=== PATIENT | female | born 1945 | race Caucasian/White ===

== ENCOUNTER 2021-04-19 21:36 | Inpatient (IN) | payer MEDICARE, BC, SELFPAY ==
--- NOTE | 2021-04-19 22:09 | XRR_ITS ---
PROCEDURE INFORMATION: Exam: XR Chest Exam date and time: 04/19/2021 10:09 PM Age: 75 years old Clinical indication: Cough and fever; Patient HX: Cough/fever. ; Additional info: Cough, fever TECHNIQUE: Imaging protocol: XR of the chest. Views: 1 view. COMPARISON: CR [facility] [place] Humerus RIGHT 04/06/2019 10:45 AM FINDINGS: Lungs: Hazy right basilar opacity which could be secondary to atelectasis or pneumonia. Pleural spaces: Unremarkable. No pleural effusion. No pneumothorax. Heart/Mediastinum: Unremarkable. No cardiomegaly. Bones/joints: Unremarkable. XR/XR chest 1V portable [id number] IMPRESSION: Hazy right basilar opacity which could be secondary to atelectasis or pneumonia.
[2021-04-19 22:16] VITALS: BP 108/70; PULSE 108; RESP 20; TEMP 37.6; O2SAT 94; BMI 35.5
[2021-04-19 23:24] LABS: SARS Covid-2 Antigen Negative (Negative)
--- NOTE | 2021-04-19 23:26 | ECG_ITS ---
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 Measurements Intervals [facility] Rate: 102 P: 26 ME: 143 QRS: 7 QRSD: 74 T: 58 QT: 320 QTc: 419 Interpretive Statements SINUS TACHYCARDIA LOW QRS VOLTAGE IN PRECORDIAL LEADS [QRS DEFLECTION < 1.0 mV IN CHEST LEADS] ABNORMAL RHYTHM ECG No previous ECG available for comparison Electronically Signed On 04-20-2021 7:32:05 CDT by Jocelyn Krause M.D. [id number]
[2021-04-19 23:41] LABS: Basophils # 0.1 10^3/uL (0.0-0.1); Basophils % 0.3 %; Hematocrit 36.7 % (37.0-47.0); Hemoglobin 11.8 g/dL (11.5-15.3); Lymphocytes # 2.4 10^3/uL (0.8-4.8); Lymphocytes % 12.5 %; Mean Corpuscular HGB Conc 32.2 g/dL (30.0-36.0); Mean Corpuscular Hemoglobin 28.8 pg (28.0-34.0); Mean Corpuscular Volume 89.5 fL (81-99); Mean Platelet Volume 12.5 fL (7.4-10.4); Monocytes # 1.5 10^3/uL (0.2-0.9); Monocytes % 7.9 %; Neutrophils # 15.26 10^3/uL (1.8-7.7); Neutrophils % 78.5 %; Nucleated Red Blood Cells % 0 %; Platelet Count 43 10^3/cmm (130-400); Red Cell Distribution Width 15.1 % (12.1-15.1); White Blood Count 19.4 10^3/uL (4.0-10.0)
[2021-04-19 23:52] LABS: Lactic Sepsis W/Reflex 1.7 mmol/L (0.5-2.2)
[2021-04-20] LABS: Alanine Aminotransferase 30 U/L (0-33); Albumin Level 3.8 g/dL (3.5-5.2); Alkaline Phosphatase 71 IU/L (35-105); Anion Gap 18.2 (5-19); Aspartate Amino Transferase 19 U/L (0-32); Blood Urea Nitrogen 33 mg/dL (8-23); Calcium 8.6 mg/dL (8.5-10.5); Carbon Dioxide 20 mmol/L (22-29); Chloride 99 mmol/L (98-107); Globulin 2.6 g/dL (1.3-4.6); Glucose 265 mg/dL (65-115); Osmolality Calculated 291 mOsm/kg (285-295); Potassium 5.2 mmol/L (3.5-5.1); Sodium 132 mmol/L (136-145); Total Bilirubin 0.6 mg/dL (0.15-1.2); Total Protein 6.4 g/dL (6.6-8.7)
--- NOTE | 2021-04-20 02:48 | ED_ITS ---
HPI - General Adult General: Chief complaint: Altered Mental Status Stated complaint: Coughing\Confused\Fever Time Seen by Provider: 04/20/21 00:19 History of Present Illness: HPI narrative: Patient is a 75-year-old female with a history of diabetes and mild Alzheimer's dementia who presents to the emergency room with acute worsening of cough, dyspnea and fever at home x1 day. Patient was recently treated for bronchitis with a steroid taper which finished 5 days ago. Patient says that she has been coughing for the last 2 weeks which has improved significantly improved up until yesterday. Hsuband noticed patient is more confused compared to baseline and had a low grade fever at home. Patient denies chest pain denies any nausea vomiting GI or complaints. She was recently swabbed for Covid on Saturday, which was negative. Onset:1 day ago Duration:1 day Location:home Severity:moderate Review of Systems Narrative: Constitutional: No fever, no chills. HEENT: No vision changes CV: No chest pain, no palpitations PULM: +cough, +dyspnea. GI: No abdominal pain, no N/V/D. : No dysuria MSKEL: No muscle pain SKIN: No new rashes, no lesions. NEURO: No headache, no focal weakness. HEME: No visible bruises PSYCH: Normal mood Physical Exam Narrative: EXAM NARRATIVE: Head: Atraumatic Eyes: PERRL, conjunctiva without injection ENT: Mucous membrane moist NECK: Supple, ROM intact LUNGS: Coarse breath sounds R > L CV: RRR ABDOMEN: Soft, nontender in all quadrants EXTREMITY: Normal ROM SKIN: No rash or erythema NEURO: Awake and alert, no focal motor deficits PSYCH: Normal mood and affect Course Vital Signs: Vital signs: Vital Signs Temperature 99.7 F H 04/19/21 22:16 Pulse Rate 108 H 04/19/21 22:16 Respiratory Rate 20 H 04/19/21 22:16 Blood Pressure 108/70 04/19/21 22:16 Pulse Oximetry 94 04/19/21 22:16 MDM - General Adult MDM Narrative: Medical decision making narrative: 75-year-old female with history of mild Alzheimer's disease presenting to the emergency room for concerns of worsening cough x1 day in the setting of fever. On arrival, patient is noted to be mildly tachycardic to low 100s. WBC of 18.9K, 5 days removed from steroid taper. X-ray is consistent with possible right-sided pneumonia. Patient given azithromycin and ceftriaxone in the emergency room. Given age over 65 and possible worsening confusion per her to baseline, patient admitted to hospital for evaluation management of bacterial pneumonia. Disposition: Admission Lab Data: Labs: Lab Results 04/19/21 04/19/21 04/19/21 Range/Units 22:57 23:25 23:25 WBC 19.4 H (4.0-10.0) 10^3/ uL RBC 4.10 (4.1-5.3) 10^6/u L Hgb 11.8 (11.5-15.3) g/dL Hct 36.7 L (37.0-47.0) % MCV 89.5 (81-99) fL MCH 28.8 (28.0-34.0) pg MCHC 32.2 (30.0-36.0) g/dL RDW 15.1 (12.1-15.1) % Plt Count 43 L (130-400) 10^3/c mm MPV 12.5 H (7.4-10.4) fL Neut % (Auto) 78.5 % Lymph % (Auto) 12.5 % [place] % (Auto) 7.9 % Eos % (Auto) 0.0 % Baso % (Auto) 0.3 % Neut # (Auto) 15.26 H (1.8-7.7) 10^3/u L Lymph # (Auto) 2.4 (0.8-4.8) 10^3/u L [place] # (Auto) 1.5 H (0.2-0.9) 10^3/u L Eos # (Auto) 0.0 (0.0-0.8) 10^3/u L Baso # (Auto) 0.1 (0.0-0.1) 10^3/u L Nucleated RBC % (a uto) 0 % Nucleated RBCs # 0.0 /100WBC Sodium 132 L (136-145) mmol/L Potassium 5.2 H (3.5-5.1) mmol/L Chloride 99 (98-107) mmol/L Carbon Dioxide 20 L (22-29) mmol/L Anion Gap 18.2 (5-19) BUN 33 H (8-23) mg/dL Creatinine 1.3 H (0.5-0.9) mg/dL GFR Calculation Not Reportable Glucose 265 H (65-115) mg/dL Calculated Osmolal ity 291 (285-295) mOsm/k g Lactic Acid (0.5-2.2) mmol/L Calcium 8.6 (8.5-10.5) mg/dL Total Bilirubin 0.6 (0.15-1.2) mg/dL AST 19 (0-32) U/L ALT 30 (0-33) U/L Alkaline Phosphata se 71 (35-105) IU/L Total Protein 6.4 L (6.6-8.7) g/dL Albumin 3.8 (3.5-5.2) g/dL Globulin 2.6 (1.3-4.6) g/dL SARS-CoV-2 Ag (Rap id) Negative (Negative) 04/19/21 Range/Units 23:25 WBC (4.0-10.0) 10^3/ uL RBC (4.1-5.3) 10^6/u L Hgb (11.5-15.3) g/dL Hct (37.0-47.0) % MCV (81-99) fL MCH (28.0-34.0) pg MCHC (30.0-36.0) g/dL RDW (12.1-15.1) % Plt Count (130-400) 10^3/c mm MPV (7.4-10.4) fL Neut % (Auto) % Lymph % (Auto) % [place] % (Auto) % Eos % (Auto) % Baso % (Auto) % Neut # (Auto) (1.8-7.7) 10^3/u L Lymph # (Auto) (0.8-4.8) 10^3/u L [place] # (Auto) (0.2-0.9) 10^3/u L Eos # (Auto) (0.0-0.8) 10^3/u L Baso # (Auto) (0.0-0.1) 10^3/u L Nucleated RBC % (a uto) % Nucleated RBCs # /100WBC Sodium (136-145) mmol/L Potassium (3.5-5.1) mmol/L Chloride (98-107) mmol/L Carbon Dioxide (22-29) mmol/L Anion Gap (5-19) BUN (8-23) mg/dL Creatinine (0.5-0.9) mg/dL GFR Calculation Glucose (65-115) mg/dL Calculated Osmolal ity (285-295) mOsm/k g Lactic Acid 1.7 (0.5-2.2) mmol/L Calcium (8.5-10.5) mg/dL Total Bilirubin (0.15-1.2) mg/dL AST (0-32) U/L ALT (0-33) U/L Alkaline Phosphata se (35-105) IU/L Total Protein (6.6-8.7) g/dL Albumin (3.5-5.2) g/dL Globulin (1.3-4.6) g/dL SARS-CoV-2 Ag (Rap id) (Negative) Imaging Data^: Other Imaging: Radiologist's impression: [address] [id number] ReportSigned Patient: Eugenia Osuna AUnit #: [id number]: 5Acct#:[id number]/Sex: 75 / FADM Date: 04/19/21Loc: ERRoom/Bed:Attending Dr: Ordering Provider/Ordering MD: Iain Shelley NP Date of Service: 04/19/21 Procedure(s): XR chest 1V portable [id number] Accession Number(s): [id number] Report Number: [id number] PROCEDURE INFORMATION: Exam: XR Chest Exam date and time: 04/19/2021 10:09 PM Age: 75 years old Clinical indication: Cough and fever; Patient HX: Cough/fever. ; Additional info: Cough, fever TECHNIQUE: Imaging protocol: XR of the chest. Views: 1 view. COMPARISON: [facility] [place] Humerus RIGHT 04/06/2019 10:45 AM FINDINGS: Lungs: Hazy right basilar opacity which could be secondary to atelectasis or pneumonia. Pleural spaces: Unremarkable. No pleural effusion. No pneumothorax. Heart/Mediastinum: Unremarkable. No cardiomegaly. Bones/joints: Unremarkable. XR/XR chest 1V portable [id number] IMPRESSION: Hazy right basilar opacity which could be secondary to atelectasis or pneumonia. 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
[2021-04-20] MEDS: azithromycin 250 mg Tablet 500 MG PO (04:07)
[2021-04-20] MEDS: cefTRIAXone 1,000 MG in sodium chloride 0.9% (plus) 50 ML 100 MG IV (04:08)
--- NOTE | 2021-04-20 06:02 | P.HP_ITS ---
Providers/Chief Complaint Admitting Physician: Margaret Srinivasan md Chief Complaint: Coughing\Confused\Fever History of Present Illness Eugenia Osuna is a 75 year old female to the emergency room with history of having URI symptoms for the past 12 days. Patient reported being in her usual state of health until 12 days ago when she developed cough with nonproductive sputum, some wheezing. Was tested with a rapid Covid at [facility] and was negative. She is previously vaccinated with the mother and a dose series. Thereafter when symptoms did not improve over the next 2 to 3 days she went to her primary care physician, was diagnosed with bronchitis, received a short course of steroids and cough syrup. This did not appear to help much either. This evening her noted her to have a fever of 101.1 Fahrenheit and michael ent was acting confused. Reports this behavior as trying to find to cell phones when she only owns 1, looking for objects that were right in her lap. At the time of my evaluation right now patient is alert awake and oriented. She has been diagnosed with early Alzheimer's dementia, however has not exhibited confused behavior in the past per family. She denies any dyspnea palpitations or chest pain at this time. She has not been treated with any antibiotics thus far. Labs in the ER notable for WBC of 19, thrombocytopenia with platelet count of 44, febrile and tachycardic. Chest x-ray with possible right lower lobe infiltrate versus atelectasis. ROS negative for abdominal pain nausea vomiting diarrhea bleeding dysuria. Review of Systems General: Reports: 10 or more systems reviewed and unremarkable except in HPI and below Const: Denies: fever(s), chills or body aches Eyes: Denies: change in vision, blurry vision or photophobia ENMT: Reports: hoarseness; Denies: throat pain, enlarged tonsils, odynophagia or nasal congestion Card: Denies: chest pain, palpitations, irregular heart rhythm, edema, swelling of feet/ankles, lightheadedness, pre-syncope, dyspnea on exertion or orthopnea Resp: Denies: dyspnea, productive cough, non-productive cough, wheezing, stridor, pain on inspiration, change in phlegm color, hemoptysis or chest congestion GI: Denies: abdominal pain, nausea, vomiting, hematemesis, coffee ground emesis, dysphagia, heartburn, diarrhea, constipation, GI cramping, change in stool character, hematochezia or melena : Denies: flank pain, difficulty voiding, dysuria, urinary frequency, urinary urgency, urinary hesitancy or hematuria Musc: Denies: neck pain, back pain, extremity pain, joint swelling, joint warmth or deformity Neuro: Denies: headache(s), numbness in extremities, weakness in extremities, sensory changes, difficulty walking, frequent falls, dizziness, vertigo, behavioral changes, Slurred speech present or seizure-like activity Psych: Denies: anxiety, depression, suicidal ideation or homicidal ideation Endo: Denies: polyuria, polydipsia, tired all the time, cold intolerance or hot flashes Duncan/Lymph: Denies: easy bruising or easy bleeding Medications/Allergies Allergies Allergy/AdvReac Type Severity Reaction Status Date / Time No Known Allergies Allergy Verified 04/20/21 01:44 PFSH Acute PFSH: Medical History (Updated 04/20/21 @ 06:13 by Margaret Srinivasan MD) Diabetes mellitus Hypertension Vitals/I&O/Wt Last Vital Signs Temp 99.7 F H 04/19/21 22:16 Pulse 108 H 04/19/21 22:16 Resp 20 H 04/19/21 22:16 BP 108/70 04/19/21 22:16 Pulse Ox 94 04/19/21 22:16 Weight last 48 hrs Weight 99.79 kg Physical Exam Narrative: EXAM NARRATIVE: General: No acute distress, AO x3 HEENT: PERRLA, pupils bilaterally equal and reactive, pallors not present Chest: Normal vesicular breath sounds, no added sounds, equal good air entry bilaterally CVS: S1-S2 regular, no murmurs, no tachycardia, no gallops, no rubs Abdomen: Soft, nontender, no organomegaly, bowel sounds present Neuro: No focal deficits, no facial deformity, AO x3, power 5/5 in all limbs Data : 04/19/21 23:25 04/19/21 23:25 Micro: Microbiology 04/20/21 01:23 Blood Culture - Preliminary Blood SPECIMEN COLLECTED 04/19/21 23:25 Blood Culture - Preliminary Blood SPECIMEN COLLECTED A&P Assessment and plan (1) Sepsis: Status: Acute Qualifiers: Sepsis type: sepsis due to unspecified organism Sepsis acute organ dysfunction status: unspecified Qualified Code(s): A41.9 - Sepsis, unspecified organism (2) Thrombocytopenia: Status: Acute (3) HAYLIE (acute kidney injury): Status: Acute (4) Right lower lobe pneumonia: Status: Acute Qualifiers: Pneumonia type: due to unspecified organism Qualified Code(s): J18.9 - Pneumonia, unspecified organism (5) Confusion: Status: Acute Additional A&P Information Admit to [facility] Meet sepsis criteria by way of leukocytosis, fever, tachycardia, source of infection May be secondary to right lower lobe pneumonia, official radiology read with consolidation versus atelectasis in the right lower lobe. Check urine Legionella and urine bacterial antigens. New thrombocytopenia, no current signs of bleeding. May be related to sepsis. Check DIC panel and peripheral smear. Check additionally UA, tick panel, blood culture. Start ceftriaxone and doxycycline empirically while awaiting results of sepsis work-up as above HAYLIE with creatinine 1.3 with unclear baseline. IV fluids normal saline at 75 cc an hour. Encourage p.o. intake. Monitor MARQUITA. Rapid Covid antigen testing negative today, previously also tested negative with primary care provider. Check Covid PCR today. Albuterol as needed for recent diagnosis of bronchitis, no current wheezing on exam today at this time. Full code DVT prophylaxis SCDs only given thrombocytopenia Attestations Medical Necessity Statement*: Anticipate greater than 2 midnight admission for evaluation and management of sepsis, thrombocytopenia. 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
[2021-04-20 06:31] LABS: LAB Peripheral Smear Sent for Review
[2021-04-20 07:22] LABS: INR 1.07 (0.8-1.2)
[2021-04-20 07:23] LABS: Fibrinogen 729 mg/dL (174-498); Partial Thromboplastin Time 31.1 SECONDS (23.9-36.7)
[2021-04-20 07:26] LABS: D Dimer 1.38 ug/mIFEU (0-0.59)
[2021-04-20 07:46] VITALS: BP 104/58; PULSE 101; O2SAT 94
--- NOTE | 2021-04-20 07:50 | CT_ITS ---
WS: [id number] CTA OF THE CHEST WITH PULMONARY EMBOLISM PROTOCOL TECHNIQUE: High-resolution contrast enhanced CTA of the chest with coronal and sagittal reformatted i mages with pulmonary embolism protocol. MIP images are also reviewed. CLINICAL INFORMATION: elevated dimer, tachycardia COMPARISON: None. DLP: 615.[address] scans at [facility] use at least one of these dose optimization techniques: automat ed exposure control; mA and/or kV adjustment per patient size (includes targeted exams where dose is matched to clinical indication); or iterative reconstruction. FINDINGS: Proximal main pulmonary arteries are normal. Segmental and subsegmental pulmonary arteries are normal . No evidence of pulmonary embolus. No suspicious filling defects. Lungs are well aerated. Slight hazy atelectasis in the right midlung. Slight subsegmental atelectasis right lower lobe. Patchy nodular infiltrate in left lower lobe medially with bronchiectasis and pleu ral thickening. Recommend correlation for infectious or inflammatory pneumonitis. No mediastinal or hilar lymphadenopathy. No axillary lymphadenopathy. Adrenal glands are normal. Fatt y atrophy of the pancreas. Cholecystectomy clips. Small esophageal hiatal hernia. Hypertrophic change s thoracic spine. Mild thoracic curve. CT/CT angio chest PE protcl [id number] IMPRESSION: 1. Proximal main pulmonary arteries are normal. Normal segmental and subsegmen nolvia pulmonary arteries. No evidence of pulmonary embolus. 2. Patchy nodular infiltrate in the left lower lobe medially with pleural thic kening and bronchiectasis.Correlation for infectious or inflammatory pneumoniti s. 3. Slight hazy atelectasis in the right middle lobe and subsegmental atelectas is right lower lobe. 4. No mediastinal or hilar lymphadenopathy.
[2021-04-20 08:04] VITALS: PULSE 101; RESP 17; O2SAT 97
[2021-04-20 08:30] VITALS: BP 117/67; PULSE 94; O2SAT 94
[2021-04-20] MEDS: iodixanol 320 mg/mL 100mL Btl IV (08:40)
[2021-04-20] MEDS: pantoprazole DR 40 mg Tablet PO (09:41)
[2021-04-20] MEDS: doxycycline 100 mg Tablet PO (09:41)
[2021-04-20] MEDS: enoxaparin 40 mg/0.4 mL Syringe SUBCUT (09:42)
[2021-04-20] MEDS: lactated ringers 1,000 ML 100 ML IV (09:43)
[2021-04-20 09:59] LABS: Glucose Point of Care 307 mg/dL (70-110)
[2021-04-20 10:25] LABS: Add Urine Microscopic? YES; Bilirubin Urine Neg (Negative); Blood Urine Neg (Negative); Glucose Urine UA 2+ (Normal); Ketones Urine Negative (Negative); Leukocyte Esterase Urine 1+ (Negative); Nitrate Urine Negative (Negative); Protein Urine Neg (Negative); Urine Appearance Clear (CLEAR); Urine Color Yellow (Yellow); Urobilinogen Urine Norm (Negative); pH Urine 5 (5-7)
[2021-04-20 10:44] LABS: Bacteria Urine TRACE /hpf; Squamous Epithelial Cell Urine 0-4 /hpf (0-5); WBC Urine 0-4 /hpf (0-5)
[2021-04-20 10:45] LABS: Add Urine Culture? No
[2021-04-20 10:55] LABS: Basophils % 0.2 %; Hematocrit 34.2 % (37.0-47.0); Lymphocytes # 1.3 10^3/uL (0.8-4.8); Lymphocytes % 9.3 %; Mean Corpuscular HGB Conc 32.2 g/dL (30.0-36.0); Mean Corpuscular Hemoglobin 29.3 pg (28.0-34.0); Mean Platelet Volume 14.4 fL (7.4-10.4); Monocytes # 1.2 10^3/uL (0.2-0.9); Monocytes % 8.1 %; Neutrophils # 11.66 10^3/uL (1.8-7.7); Neutrophils % 81.8 %; Nucleated Red Blood Cells % 0 %; Platelet Count 36 10^3/cmm (130-400); Positive M 1; Red Blood Count 3.76 10^6/uL (4.1-5.3); Red Cell Distribution Width 15.3 % (12.1-15.1); White Blood Count 14.2 10^3/uL (4.0-10.0)
[2021-04-20 11:15] LABS: Slide Review Slide Review Perform
[2021-04-20 11:20] LABS: Anion Gap 13.9 (5-19); Blood Urea Nitrogen 31 mg/dL (8-23); Calcium 8.6 mg/dL (8.5-10.5); Carbon Dioxide 23 mmol/L (22-29); Chloride 98 mmol/L (98-107); Glucose 330 mg/dL (65-115); Osmolality Calculated 289 mOsm/kg (285-295); Potassium 4.9 mmol/L (3.5-5.1); Sodium 130 mmol/L (136-145)
[2021-04-20 11:24] LABS: Procalcitonin 0.26 ng/mL (0-0.5)
--- NOTE | 2021-04-20 13:05 | PM.DCS ---
Discharge Providers Date of Admission: 04/20/21 02:44 Date of Discharge: April 20, 2021 Attending Provider at Admission: Margaret Srinivasan MD Attending Provider at Discharge: Margaret Srinivasan MD Diagnoses at Discharge Discharge Diagnosis (1) Sepsis: Status: Resolved Qualifiers: Sepsis acute organ dysfunction status: unspecified Sepsis type: sepsis due to unspecified organism Qualified Code(s): A41.9 - Sepsis, unspecified organism (2) Thrombocytopenia: Status: Acute (3) HAYLIE (acute kidney injury): Status: Resolved (4) Right lower lobe pneumonia: Status: Acute Qualifiers: Pneumonia type: due to unspecified organism Qualified Code(s): J18.9 - Pneumonia, unspecified organism (5) Confusion: Status: Resolved Reason for Visit Reason for Visit: Coughing\Confused\Fever Hospital Course Hospital Course 75 year old female to the emergency room with history of having URI symptoms for the past 12 days. Patient reported being in her usual state of health until 12 days ago when she developed cough with nonproductive sputum, some wheezing. Was tested with a rapid Covid at [facility] and was negative. She is previously vaccinated with the mother and a dose series. Thereafter when symptoms did not improve over the next 2 to 3 days she went to her primary care physician, was diagnosed with bronchitis, received a short course of steroids and cough syrup. This did not appear to help much either. This evening her noted her to have a fever of 101.1 Fahrenheit and patient was acting confused. Reports this behavior as trying to find to cell phones when she only owns 1, looking for objects that were right in her lap. At the time of my evaluation right now patient is alert awake and oriented. She has been diagnosed with early Alzheimer's dementia, however has not exhibited confused behavior in the past per family. She denies any dyspnea palpitations or chest pain at this time. She has not been treated with any antibiotics thus far. Labs in the ER notable for WBC of 19, thrombocytopenia with platelet count of 44, febrile and tachycardic. Chest x-ray with possible right lower lobe infiltrate versus atelectasis. ROS negative for abdominal pain nausea vomiting diarrhea bleeding dysuria. Patient was started on antibiotics including doxycycline for suspected underlying tick-borne illness. At the time of my evaluation patient was without any distress stating she felt back to normal. Was wanting to be discharged instead of transferred to outside facility. Counselor on close outpatient follow-up repeat labs due to thrombocytopenia. Patient verbalized understanding. At this time patient was discharged on oral doxycycline. Physical Exam Narrative: EXAM NARRATIVE: General: No acute distress, AO x3 HEENT: PERRLA, pupils bilaterally equal and reactive, pallors not present Chest: Normal vesicular breath sounds, no added sounds, equal good air entry bilaterally CVS: S1-S2 regular, no murmurs, no tachycardia, no gallops, no rubs Abdomen: Soft, nontender, no organomegaly, bowel sounds present Neuro: No focal deficits, no facial deformity, AO x3, power 5/5 in all limbs Discharge Data Data Completed and Pending: Completed Studies During Hospitalization Category Date Time Status CT angio chest PE protcl [id number] Urge nt Cat Scan 04/20/21 07:50 Completed XR chest 1V osmel ble [id number] Stat Exams 04/19/21 22:09 Completed Pending at discharge Category Date Time Status Basic Metabolic P naina AM LABS Lab 04/21/21 04:00 Ordered Blood Culture Sta t Lab 04/19/21 23:25 Results Complete Blood Co unt w/Auto AM LABS Lab 04/21/21 04:00 Ordered Complete Blood Co unt w/Auto AM LABS Lab 04/21/21 04:00 Ordered Comprehensive Met abolic Panel AM LA BS Lab 04/21/21 04:00 Ordered Coronavirus Test [facility] [place] ne Lab 04/20/21 04:00 Received Sputum Culture an d Gram Stain [place] ne Lab 04/20/21 05:20 Uncollected Tick Panel Routin e Lab 04/20/21 06:41 Received Labs from last 24 hours 04/20/21 04/20/21 04/20/21 10:45 10:45 10:07 WBC 14.2 H RBC 3.76 L Hgb 11.0 L Hct 34.2 L MCV 91.0 MCH 29.3 MCHC 32.2 RDW 15.3 H Plt Count 36 L MPV 14.4 H Neut % (Auto) 81.8 Lymph % (Auto) 9.3 Whitfield % (Auto) 8.1 Eos % (Auto) 0.0 Baso % (Auto) 0.2 Neut # (Auto) 11.66 H Lymph # (Auto) 1.3 Whitfield # (Auto) 1.2 H Eos # (Auto) 0.0 Baso # (Auto) 0.0 Nucleated RBC % (a uto) 0 Nucleated RBCs # 0.0 Haptoglobin 280.0 H PT INR APTT Fibrinogen Fibrin Degrad Prod ucts D-Dimer Sodium 130 L Potassium 4.9 Chloride 98 Carbon Dioxide 23 Anion Gap 13.9 BUN 31 H Creatinine 1.4 H GFR Calculation Not Reportable Glucose 330 H POC Glucose Calculated Osmolal ity 289 Lactic Acid Calcium 8.6 Total Bilirubin AST ALT Alkaline Phosphata se Total Protein Albumin Globulin Procalcitonin 0.26 Urine Color Yellow Urine Appearance Clear Urine pH 5 Ur Specific Gravit y 1.010 Urine Protein Neg Urine Glucose (UA) 2+ Urine Ketones Negative Urine Blood Neg Urine Nitrate Negative Urine Bilirubin Neg Urine Urobilinogen Norm Ur Leukocyte Iris ase 1+ H Urine RBC None Urine WBC 0-4 H Ur Squamous Epith Cells 0-4 H Amorphous Sediment Not Reportable Urine Bacteria Trace Lyme Ab (Western B lot) Nasal/Oral COVID-1 9 PCR E. chaffeensis IgG Ab E. chaffeensis IgM Ab E. chaffeensis Int erp E. chaffeensis Com ment Rickettsia IgG Ab Rickettsia IgM Ab SARS-CoV-2 Ag (Rap id) 04/20/21 04/20/21 04/20/21 09:55 07:05 06:41 WBC RBC Hgb Hct MCV MCH MCHC RDW Plt Count MPV Neut % (Auto) Lymph % (Auto) Whitfield % (Auto) Eos % (Auto) Baso % (Auto) Neut # (Auto) Lymph # (Auto) Whitfield # (Auto) Eos # (Auto) Baso # (Auto) Nucleated RBC % (a uto) Nucleated RBCs # Haptoglobin PT 14.30 INR 1.07 APTT 31.1 Fibrinogen 729 H Fibrin Degrad Prod ucts Neg, <10 D-Dimer 1.38 H Sodium Potassium Chloride Carbon Dioxide Anion Gap BUN Creatinine GFR Calculation Glucose POC Glucose 307 H Calculated Osmolal ity Lactic Acid Calcium Total Bilirubin AST ALT Alkaline Phosphata se Total Protein Albumin Globulin Procalcitonin Urine Color Urine Appearance Urine pH Ur Specific Gravit y Urine Protein Urine Glucose (UA) Urine Ketones Urine Blood Urine Nitrate Urine Bilirubin Urine Urobilinogen Ur Leukocyte Iris ase Urine RBC Urine WBC Ur Squamous Epith Cells Amorphous Sediment Urine Bacteria Lyme Ab (Western B lot) Pending Nasal/Oral COVID-1 9 PCR E. chaffeensis IgG Ab Pending E. chaffeensis IgM Ab Pending E. chaffeensis Int erp Pending E. chaffeensis Com ment Pending Rickettsia IgG Ab Pending Rickettsia IgM Ab Pending SARS-CoV-2 Ag (Rap id) 04/20/21 04/19/21 04/19/21 04:00 23:25 23:25 WBC RBC Hgb Hct MCV MCH MCHC RDW Plt Count MPV Neut % (Auto) Lymph % (Auto) Whitfield % (Auto) Eos % (Auto) Baso % (Auto) Neut # (Auto) Lymph # (Auto) Whitfield # (Auto) Eos # (Auto) Baso # (Auto) Nucleated RBC % (a uto) Nucleated RBCs # Haptoglobin PT INR APTT Fibrinogen Fibrin Degrad Prod ucts D-Dimer Sodium Potassium Chloride Carbon Dioxide Anion Gap BUN Creatinine GFR Calculation Glucose POC Glucose Calculated Osmolal ity Lactic Acid 1.7 Calcium Total Bilirubin AST ALT Alkaline Phosphata se Total Protein Albumin Globulin Procalcitonin 0.20 Urine Color Urine Appearance Urine pH Ur Specific Gravit y Urine Protein Urine Glucose (UA) Urine Ketones Urine Blood Urine Nitrate Urine Bilirubin Urine Urobilinogen Ur Leukocyte Iris ase Urine RBC Urine WBC Ur Squamous Epith Cells Amorphous Sediment Urine Bacteria Lyme Ab (Western B lot) Nasal/Oral COVID-1 9 PCR Pending E. chaffeensis IgG Ab E. chaffeensis IgM Ab E. chaffeensis Int erp E. chaffeensis Com ment Rickettsia IgG Ab Rickettsia IgM Ab SARS-CoV-2 Ag (Rap id) 04/19/21 04/19/21 04/19/21 23:25 23:25 22:57 WBC 19.4 H RBC 4.10 Hgb 11.8 Hct 36.7 L MCV 89.5 MCH 28.8 MCHC 32.2 RDW 15.1 Plt Count 43 L MPV 12.5 H Neut % (Auto) 78.5 Lymph % (Auto) 12.5 Whitfield % (Auto) 7.9 Eos % (Auto) 0.0 Baso % (Auto) 0.3 Neut # (Auto) 15.26 H Lymph # (Auto) 2.4 Whitfield # (Auto) 1.5 H Eos # (Auto) 0.0 Baso # (Auto) 0.1 Nucleated RBC % (a uto) 0 Nucleated RBCs # 0.0 Haptoglobin PT INR APTT Fibrinogen Fibrin Degrad Prod ucts D-Dimer Sodium 132 L Potassium 5.2 H Chloride 99 Carbon Dioxide 20 L Anion Gap 18.2 BUN 33 H Creatinine 1.3 H GFR Calculation Not Reportable Glucose 265 H POC Glucose Calculated Osmolal ity 291 Lactic Acid Calcium 8.6 Total Bilirubin 0.6 AST 19 ALT 30 Alkaline Phosphata se 71 Total Protein 6.4 L Albumin 3.8 Globulin 2.6 Procalcitonin Urine Color Urine Appearance Urine pH Ur Specific Gravit y Urine Protein Urine Glucose (UA) Urine Ketones Urine Blood Urine Nitrate Urine Bilirubin Urine Urobilinogen Ur Leukocyte Iris ase Urine RBC Urine WBC Ur Squamous Epith Cells Amorphous Sediment Urine Bacteria Lyme Ab (Western B lot) Nasal/Oral COVID-1 9 PCR E. chaffeensis IgG Ab E. chaffeensis IgM Ab E. chaffeensis Int erp E. chaffeensis Com ment Rickettsia IgG Ab Rickettsia IgM Ab SARS-CoV-2 Ag (Rap id) Negative Vitals: Last Vital Signs Temp 99.7 F H 04/19/21 22:16 Pulse 94 04/20/21 08:30 Resp 17 04/20/21 08:04 BP 117/67 04/20/21 08:30 Pulse Ox 94 04/20/21 08:30 Discharge Plan Discharge Patient Disposition: Home Condition: Stable Prescriptions: New doxycycline monohydrate 100 mg capsule 100 mg PO BID Qty: 14 RF: 0 Continued calcium 600 mg Capsule 1,200 mg PO DAILY RF: 0 glyburide 5 mg tablet See Rx Instructions .ROUTE .COMPLEX RF: 0 Vitamin B-12 1,000 mcg Tablet 1,000 mcg PO DAILY RF: 0 allopurinol 100 mg tablet 100 mg PO DAILY RF: 0 tramadol 50 mg tablet 50 mg PO TID PRN (Reason: Pain) RF: 0 acetaminophen 500 mg Tablet 1,000 mg PO BID RF: 0 simvastatin 40 mg tablet 40 mg PO DAILY RF: 0 metformin 1,000 mg tablet 1,000 mg PO BID RF: 0 aspirin 81 mg Tablet,Chewable 81 mg PO DAILY RF: 0 magnesium 250 mg Tablet 250 mg PO DAILY RF: 0 gabapentin 100 mg capsule 100 - 200 mg PO BEDTIME RF: 0 Januvia 100 mg tablet 100 mg PO DAILY RF: 0 Vitamin D3 125 mcg (5,000 unit) Tablet 125 mcg PO DAILY RF: 0 Discontinued lisinopril-hydrochlorothiazide 20-25 mg tablet 1 tab PO DAILY RF: 0 Discharge Orders: Discharge Order (Routine); Ordered 04/20/21 Ordered By: James Patel Other Ambulatory Orders: Basic Metabolic Panel (Routine) Timeframe: 1 Week Facility: [facility] - Location: Lab - Main Lab Ordered By: James Patel Complete Blood Count w/Auto (Routine) Timeframe: 1 Week Location: Determined by Patient Ordered By: James Patel Referrals: Lars Chavez DO [Physician] - 1-3 days (Please call and make an appointment) Discharge Diet: Cardiac and Diabetic Discharge Activity: Increase activity as tolerated Patient Instructions: Opioid Safety Discharge Attestations Time Spent in Discharge Care*: greater than 30 min Specific Discharge Activities: educating patient, discussing with pcp/other providers (Attempted to contact primary care physician multiple times), discussing with director of casework/social workers/dc planners, documenting/other paperwork and evaluating patient/reviewing data Status at Discharge: Cognitive status at discharge: cognitively intact, Behavioral status at discharge: cooperative, Functional status at discharge: independent ambulation Overall status at discharge: patient is progressing back to baseline Quality Metrics Clinical Quality Measures During this hospital stay, did patient experience: None Coding Level of Care Code Acute Chg FW DC note Diagnoses Sepsis A41.9 Sepsis acute organ dysfunction status: unspecified Sepsis type: sepsis due to unspecified organism Thrombocytopenia D69.6 HAYLIE (acute kidney injury) N17.9 Right lower lobe pneumonia J18.9 Pneumonia type: due to unspecified organism Confusion R41.0
[2021-04-20 13:57] VITALS: BP 120/64; PULSE 97; O2SAT 98
[2021-04-20 15:50] LABS: Coronavirus Test Green County Detected
[2021-04-21 15:46] LABS: Lyme AB Screen <0.90 index
[2021-04-25 17:03] LABS: RMSF IGG NOT DETECTED; RMSF IGM NOT DETECTED
[2021-04-26 20:54] LABS: E. Chaffeensis AB IGG <1:64; E. Chaffeensis AB IGM <1:20
[2021-04-28 07:17] LABS: Miscellaneous Test See Scanned Lab Rpt
== END 2021-04-20 14:00 | disposition home or self-care (01) | DRG 871 ==
LOC: ER 04-20 00:19 → ER IP 04-20 07:52
PROVIDERS: Hospitalist; Nurse Practitioner Family; Admitting Provider Student in an Organized Health Care Education/Training Program; Emergency Provider Emergency Medicine; Visit Provider Student in an Organized Health Care Education/Training Program
DX: A41.9 Sepsis, unspecified organism (principal); J18.9 Pneumonia, unspecified organism; N17.9 Acute kidney failure, unspecified; G30.9 Alzheimer's disease, unspecified; F02.80 Dementia in other diseases classified elsewhere, unspecified severity, without behavioral disturbance, psychotic disturbance, mood disturbance, and anxiety; E11.9 Type 2 diabetes mellitus without complications; I10 Essential (primary) hypertension; D64.9 Anemia, unspecified; D69.6 Thrombocytopenia, unspecified; R00.0 Tachycardia, unspecified; Z20.822 Contact with and (suspected) exposure to COVID-19; Z79.82 Long term (current) use of aspirin; Z79.4 Long term (current) use of insulin
CPT/HCPCS: 36415; 36416; 71045; 71275; 80048; 80053; 80500; 81001; 82962; 83010; 83605; 84145; 85025; 85362; 85378; 85384; 85610; 85730; 86403; 86618; 86666; 86757; 87040; 87426; 87449; 87635; 88184; 88185; 93005; 96365; 99285; J0696; J1650; J1815; Q0144; Q9967

== ENCOUNTER 2021-06-28 12:11 | Inpatient (IN) | payer MEDICARE, BC, SELFPAY ==
[2021-06-28] VITALS (13 sets, daily range): BP systolic 108–169; BP diastolic 64–100; PULSE 75–91; RESP 13–19; TEMP 36.5–36.9; O2SAT 94–99; BMI 32.5
--- NOTE | 2021-06-28 12:39 | ECG_ITS ---
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
--- NOTE | 2021-06-28 12:39 | CT_ITS ---
WS: [id number] CT HEAD TECHNIQUE: Noncontrast CT of the head obtained from the skullbase to the vertex. CLINICAL INFORMATION: Symptoms of Acute Stroke. Worsening confusion and dementia COMPARISON: None. DLP: 822.[address] scans at [facility] use at least one of these dose optimization techniques: automated e xposure control; mA and/or kV adjustment per patient size (includes targeted exams where dose is matc hed to clinical indication); or iterative reconstruction. FINDINGS: No evidence of intracranial hemorrhage or mass effect. Ventricular system and basal cisterns are funk nt. Mild small vessel changes with moderate parenchymal volume loss. No extra-axial fluid collections . No evidence of mass or mass effect. Normal lacey-white differentiation. Paranasal sinuses and mastoid air cells are well aerated. .Normal visualized soft tissues. Intracrani al vascular calcification. CT/CT head wo con* [id number] IMPRESSION: 1. No evidence of intracranial hemorrhage or mass effect. 2. Mild small vessel changes. Moderate parenchymal volume loss. 3. No acute intracranial findings.
--- NOTE | 2021-06-28 12:40 | ED_ITS ---
HPI - Neuro Symptoms/Deficit General: Chief Complaint: Neuro Symptoms/Deficit Stated Complaint: Confused, unable to read at times, diabetic Time Seen by Provider: 06/28/21 12:38 History of Present Illness: HPI Narrative: 75-year-old female presents to the emergency room 35 minutes after onset of mild confusion. She is having a difficult time reading a card but no other problems. She denies any facial droop. She has not had any difficulty with speech or swallowing she denies any difficulty with vision. Onset (ago): minute(s) [facility] ED PFSH: Medical History (Updated 07/01/21 @ 13:42 by Ad Moser DO) Diabetes mellitus Hypertension Surgical History (Updated 06/28/21 @ 16:29 by Dwayne Abreu MD) History of cholecystectomy Family History (Updated 06/28/21 @ 16:29 by Dwayne Abreu MD) Father CAD (coronary artery disease) Prostate cancer Mother CAD (coronary artery disease) Social History (Updated 06/28/21 @ 16:29 by Dwayne Abreu MD) Smoking and tobacco status: never smoked Alcohol intake: never Substance/Drug Use: never NIH stroke score NIHSS: Level Of Consciousness - 1a: 0 Level Of Consciousness Questions - 1b: Both Correct Level Of Consciousness Commands - 1c: Both Correct Best Gaze - 2: Normal Visual [place] - 3: No Visual Loss Facial Palsy - 4: Normal Motor Arm Right - 5: No Drift Motor Arm Left - 5: No Drift Motor Leg Right - 6: No Drift Motor Leg Left - 6: No Drift Limb Ataxia - 7: Absent Sensory - 8: Normal Best Language - 9: No Aphasia Dysarthia - 10: Normal Extinction And Inattention - 11: 0 Score: Total Score: 0 Physical Exam Const: COMMON NORMALS: no acute distress GENERAL APPEARANCE: cooperative and comfortable ORIENTATION/CONSCIOUSNESS: Yes awake, Yes oriented to person, Yes oriented to place and Yes oriented to time HENMT: COMMON NORMALS: normocephalic, atraumatic, hearing grossly normal bilaterally, external ears normal, EAC's normal, TM's normal bilaterally, Normal nasal mucous membranes and turbinates present, moist oral mucous membranes and oropharynx normal HEAD & SCALP: normocephalic and atraumatic NOSE: Normal nasal mucous membranes and turbinates present EXTERNAL EAR: Yes external ears normal EXTERNAL AUDITORY CANAL: EAC's normal TYMPANIC MEMBRANE: TM's normal bilaterally Eye: COMMON NORMALS: Equal, round and reactive pupils present, EOMs intact bilaterally, conjunctivae normal and no scleral icterus CONJUNCTIVA: Yes conjunctivae normal PUPIL: Yes Equal, round and reactive pupils present Neck/C-Spine: COMMON NORMALS: no JVD Resp: COMMON NORMALS: normal respiratory effort, No retractions, No use of accessory muscles and clear to auscultation bilaterally AUSCULTATION: clear to auscultation bilaterally Cardio: COMMON NORMALS: no JVD, regular rate, regular rhythm and No murmurs present (Cardio) RATE: regular rate RHYTHM: regular rhythm GI: COMMON NORMALS: Soft to palpation and No hepatosplenomegaly present AUSCULTATION: Yes normoactive bowel sounds PALPATION: Yes Soft to palpation, No Tenderness to palpation present (GI), No Guarding due to palpation present (GI) and Yes No hepatosplenomegaly present Extremity: COMMON NORMALS: normal to inspection, capillary refill normal, no clubbing, cyanosis or edema, no calf tenderness and no pedal edema Neuro: SENSORIUM/ORIENTATION: Yes oriented to person, Yes oriented to place and Yes oriented to time CRANIAL NERVES: Yes CN normal except as noted (Grossly intact) COORDINATION/BALANCE: [id number] test normal and Normal rapid alternating movements of the distal upper extremity present (Neuro) SPEECH: receptive aphasia (Mild, difficulty time reading a card) MOTOR EXAM: 5/5 motor strength present throughout, Motor abnormalities not present and No Pr onator motor function present COORDINATION: [id number] test normal and rapid alternating movement UE normal Skin: COMMON NORMALS: no rashes or lesions noted GENERAL SKIN EXAM: no rashes or lesions noted Course Vital Signs: Vital signs: Vital Signs Temperature 97.3 F L 07/01/21 04:00 Pulse Rate 65 07/01/21 11:41 Respiratory Rate 18 07/01/21 11:41 Blood Pressure 122/58 07/01/21 11:41 Pulse Oximetry 98 07/01/21 11:41 MDM - Neuro Symptoms/Deficit MDM Narrative: Medical decision making narrative: Labs and imaging reviewed. Discussed the hospitalist as well as with the patient. Patient has profound thrombocytopenia will admit started on IVIG and steroids were also discussed with Dr. Miles. Lab Data: Labs: Lab Results 06/28/21 06/28/21 06/28/21 12:42 12:42 12:42 WBC 6.8 10^3/uL 10^3/ uL (4.0-10.0) RBC 3.91 10^6/uL L 10 ^6/uL (4.1-5.3) Hgb 11.4 g/dL L g/dL (11.5-15.3) Hct 36.7 % L % (37.0-47.0) MCV 93.9 fl fl (81-99) MCH 29.2 pg pg (28.0-34.0) MCHC 31.1 g/dL g/dL (30.0-36.0) RDW 13.8 % % (12.1-15.1) Plt Count 4 10^3/cmm L* 10^ 3/cmm (130-400) MPV Not Reportable Neut % (Auto) 71.9 % % Lymph % (Auto) 21.2 % % Banks % (Auto) 6.5 % % Eos % (Auto) 0.0 % % Baso % (Auto) 0.3 % % Neut # (Auto) 4.88 10^3/uL 10^3 /uL (1.8-7.7) Lymph # (Auto) 1.4 10^3/uL 10^3/ uL (0.8-4.8) Banks # (Auto) 0.4 10^3/uL 10^3/ uL (0.2-0.9) Eos # (Auto) 0.0 10^3/uL 10^3/ uL (0.0-0.8) Baso # (Auto) 0.0 10^3/uL 10^3/ uL (0.0-0.1) Nucleated RBC % (a uto) 0 % % Nucleated RBCs # 0.0 /100WBC /100W BC ESR Haptoglobin PT 13.70 SECONDS SEC ONDS (12.1-14.9) INR 1.02 (0.8-1.2) APTT 27.1 SECONDS SECO NDS (23.9-36.7) Sodium 138 mmol/L mmol/L (136-145) Potassium 4.5 mmol/L mmol/L (3.5-5.1) Chloride 101 mmol/L mmol/L (98-107) Carbon Dioxide 23 mmol/L mmol/L (22-29) Anion Gap 18.5 (5-19) BUN 16 mg/dL mg/dL (8-23) Creatinine 1.0 mg/dL H mg/dL (0.5-0.9) GFR Calculation Not Reportable Glucose 118 mg/dL H mg/dL (65-115) POC Glucose Calculated Osmolal ity 288 mOsm/kg mOsm/ kg (285-295) Calcium 9.8 mg/dL mg/dL (8.5-10.5) Total Bilirubin 0.4 mg/dL mg/dL (0.15-1.2) AST 40 U/L H U/L (0-32) ALT 41 U/L H U/L (0-33) Alkaline Phosphata se 79 IU/L IU/L (35-105) Lactate Dehydrogen ase Creatine Kinase Total Protein 7.3 g/dL g/dL (6.6-8.7) Albumin 3.9 g/dL g/dL (3.5-5.2) Globulin 3.4 g/dL g/dL (1.3-4.6) Urine Color Urine Appearance Urine pH Ur Specific Gravit y Urine Protein Urine Glucose (UA) Urine Ketones Urine Blood Urine Nitrate Urine Bilirubin Urine Urobilinogen Ur Leukocyte Iris ase Urine RBC Urine WBC Ur Squamous Epith Cells Amorphous Sediment Urine Bacteria Hyaline Casts Urine Mucus Blood Type Rho(D) Type Antibody Screen Crossmatch 06/28/21 06/28/21 06/28/21 12:42 12:42 12:42 WBC RBC Hgb Hct MCV MCH MCHC RDW Plt Count MPV Neut % (Auto) Lymph % (Auto) Banks % (Auto) Eos % (Auto) Baso % (Auto) Neut # (Auto) Lymph # (Auto) Banks # (Auto) Eos # (Auto) Baso # (Auto) Nucleated RBC % (a uto) Nucleated RBCs # ESR 45 mm/hr H mm/hr (0-15) Haptoglobin 111.0 mg/L mg/L (30-200) PT INR APTT Sodium Potassium Chloride Carbon Dioxide Anion Gap BUN Creatinine GFR Calculation Glucose POC Glucose Calculated Osmolal ity Calcium Total Bilirubin AST ALT Alkaline Phosphata se Lactate Dehydrogen ase 206 U/L U/L (135-214) Creatine Kinase 45 U/L U/L (26-192) Total Protein Albumin Globulin Urine Color Urine Appearance Urine pH Ur Specific Gravit y Urine Protein Urine Glucose (UA) Urine Ketones Urine Blood Urine Nitrate Urine Bilirubin Urine Urobilinogen Ur Leukocyte Iris ase Urine RBC Urine WBC Ur Squamous Epith Cells Amorphous Sediment Urine Bacteria Hyaline Casts Urine Mucus Blood Type Rho(D) Type Antibody Screen Crossmatch 06/28/21 06/28/21 06/28/21 12:57 13:18 14:32 WBC RBC Hgb Hct MCV MCH MCHC RDW Plt Count MPV Neut % (Auto) Lymph % (Auto) Banks % (Auto) Eos % (Auto) Baso % (Auto) Neut # (Auto) Lymph # (Auto) Banks # (Auto) Eos # (Auto) Baso # (Auto) Nucleated RBC % (a uto) Nucleated RBCs # ESR Haptoglobin PT INR APTT Sodium Potassium Chloride Carbon Dioxide Anion Gap BUN Creatinine GFR Calculation Glucose POC Glucose 119 mg/dL H mg/dL (70-110) Calculated Osmolal ity Calcium Total Bilirubin AST ALT Alkaline Phosphata se Lactate Dehydrogen ase Creatine Kinase Total Protein Albumin Globulin Urine Color Yellow (Yellow) Urine Appearance Hazy A (CLEAR) Urine pH 5 (5-7) Ur Specific Gravit y 1.025 (1.005-1.030) Urine Protein Trace (Negative) Urine Glucose (UA) Norm (Normal) Urine Ketones Negative (Negative) Urine Blood 3+ H (Negative) Urine Nitrate Negative (Negative) Urine Bilirubin Neg (Negative) Urine Urobilinogen Norm mg/dL mg/dL (Negative) Ur Leukocyte Iris ase 1+ H (Negative) Urine RBC 5-10 /hpf H /hpf (0-2) Urine WBC 10-15 /hpf H /hpf (0-5) Ur Squamous Epith Cells 15-25 /hpf H /hpf (0-5) Amorphous Sediment Not Reportable Urine Bacteria 1+ /hpf H /hpf (NONE) Hyaline Casts 0-4 /lpf H /lpf Urine Mucus Trace /hpf /hpf Blood Type A Positive Rho(D) Type Positive Antibody Screen Negative Crossmatch See Detail Discharge Plan Discharge Patient Disposition: Admitted As Inpatient Admit Provider: Dwayne Abreu Clinical Impression: Thrombocytopenia, UTI (urinary tract infection), TIA (transient ischemic attack) Condition: Stable Coding Level of Care Code ED Senior Statistician for g Fwd Exam Comprehensive
--- NOTE | 2021-06-28 12:41 | PC.NURSE ---
upon arrival pt moved to triage and VS done and then move to room 14 notified provider of pt's symptoms and observations.
--- NOTE | 2021-06-28 12:52 | PC.NURSE ---
pt not in room.
--- NOTE | 2021-06-28 13:01 | PC.NURSE ---
bed elevated to 60 degrees. pt placed on continuous spo2, cm, and nibp monitoring.
[2021-06-28 13:06] LABS: Basophils % 0.3 %; Hematocrit 36.7 % (37.0-47.0); Hemoglobin 11.4 g/dL (11.5-15.3); Lymphocytes # 1.4 10^3/uL (0.8-4.8); Lymphocytes % 21.2 %; Mean Corpuscular HGB Conc 31.1 g/dL (30.0-36.0); Mean Corpuscular Hemoglobin 29.2 pg (28.0-34.0); Mean Corpuscular Volume 93.9 fl (81-99); Monocytes # 0.4 10^3/uL (0.2-0.9); Monocytes % 6.5 %; Neutrophils # 4.88 10^3/uL (1.8-7.7); Neutrophils % 71.9 %; Nucleated Red Blood Cells % 0 %; Red Blood Count 3.91 10^6/uL (4.1-5.3); Red Cell Distribution Width 13.8 % (12.1-15.1); White Blood Count 6.8 10^3/uL (4.0-10.0)
[2021-06-28 13:18] LABS: INR 1.02 (0.8-1.2)
[2021-06-28 13:19] LABS: Partial Thromboplastin Time 27.1 SECONDS (23.9-36.7)
[2021-06-28 13:19] LABS: Glucose Point of Care 119 mg/dL (70-110)
[2021-06-28 13:23] LABS: Alanine Aminotransferase 41 U/L (0-33); Albumin Level 3.9 g/dL (3.5-5.2); Alkaline Phosphatase 79 IU/L (35-105); Anion Gap 18.5 (5-19); Aspartate Amino Transferase 40 U/L (0-32); Blood Urea Nitrogen 16 mg/dL (8-23); Calcium 9.8 mg/dL (8.5-10.5); Carbon Dioxide 23 mmol/L (22-29); Chloride 101 mmol/L (98-107); Globulin 3.4 g/dL (1.3-4.6); Glucose 118 mg/dL (65-115); Osmolality Calculated 288 mOsm/kg (285-295); Potassium 4.5 mmol/L (3.5-5.1); Sodium 138 mmol/L (136-145); Total Bilirubin 0.4 mg/dL (0.15-1.2); Total Protein 7.3 g/dL (6.6-8.7)
--- NOTE | 2021-06-28 13:30 | PC.NURSE ---
performed swallow eval. pt has coordinated swallowing effort. pt is handling her own secreations pt provided with 2 oz of water and ingests and does not cough.
[2021-06-28 13:40] LABS: Platelet Count 4 10^3/cmm (130-400)
[2021-06-28 13:41] LABS: Slide Review Slide Review Perform
--- NOTE | 2021-06-28 13:47 | XR_ITS ---
WS: [id number] Portable AP upright chest, 06/28/2021 Clinical Data: dyspnea/cough Comparison: Portable chest, 04/20/2021. Findings: No nodules, masses or effusions are seen. The heart is normal. The pulmonary vascularity is not increased. No pneumonia or pneumothorax is seen. The aortic arch shows mild tortuosity. Monitor leads are on the chest wall. There is right pleural thickening unchanged. XR/XR chest 1V portable [id number] Impression: Atherosclerosis.
[2021-06-28 13:56] LABS: Add Urine Microscopic? YES; Bilirubin Urine Neg (Negative); Blood Urine 3+ (Negative); Glucose Urine UA Norm (Normal); Ketones Urine Negative (Negative); Leukocyte Esterase Urine 1+ (Negative); Nitrate Urine Negative (Negative); Protein Urine Trace (Negative); Specific Gravity, Urine 1.025 (1.005-1.030); Urine Appearance Hazy (CLEAR); Urine Color Yellow (Yellow); Urobilinogen Urine Norm (Negative); pH Urine 5 (5-7)
[2021-06-28 13:59] LABS: Squamous Epithelial Cell Urine 15-25 /hpf (0-5)
[2021-06-28 14:01] LABS: Add Urine Culture? No; Bacteria Urine 1+ /hpf; Hyaline Casts Urine 0-4 /lpf; Mucus Urine TRACE /hpf
--- NOTE | 2021-06-28 14:08 | PC.PHAR ---
pts verified the pts medications-pts states the pt no longer takes aspirin states the pt hasnt taken for a while-pts states the pt no longer takes lisinopril/hctz-
[2021-06-28 14:57] LABS: Creatine Phosphokinase 45 U/L (26-192)
[2021-06-28] MEDS: acetaminophen 1,000 MG/100 ML PIGGYBACK 400 MG IV (15:42)
--- NOTE | 2021-06-28 16:20 | PM.HP ---
Providers/Chief Complaint Admitting Physician: Dwayne Abreu MD Primary Care Provider: Lars Chavez DO Chief Complaint: Confused, unable to read at times, diabetic History of Present Illness Eugenia Osuna is a 75 year old female with a past medical history of dementia, noninsulin-dependent type 2 diabetes mellitus, hypertension, history of COVID-19 infection in April, who presents to [facility] due to complaints of aphasia. Patient's is at bedside, he helps with history taking, as patient has had a slow decline of her dementia. According to , this morning they had received a flower bouquet from their [employer] group, and he gave the card for her to read, at first she did not understand what he was saying and he started to spell out the letters, then at other times she says that she could not see the words, he did not notice any facial droop, no slurring of her words, she sitting down, all holding up the card, no focal neurologic deficits, no sudden onset of weakness, no complaints of lightheadedness, no dizziness, no chest pain, no palpitations, no fevers, no chills, no shortness of breath, no seizure-like episode, no urinary bowel incontinence. Her is an EMT, he is immediately concerned that she could possibly be having a stroke so he called EMS. She denies being sick recently, she has a history of thrombocytopenia, which is found during her last hospitalization for Covid infection, and she was supposed to follow-up with Dr. Miles this morning but never made it to the appointment as he came to the emergency room. No personal family history of leukemia. No history of liver disease. No recent illness, cough, she has recovered from her Covid infection which was mild. She denies any bleeding, no bloody or black stools, does have bruising of her arms, does have a mild headache. Patient's tells me that she has been diagnosed with dementia, has had a slower decline, she is quite forgetful, but can recognize her , can carry conversations, can feed herself. Review of Systems Const: Denies: fever(s), chills, fatigue or malaise Eyes: Denies: change in vision or blurry vision ENMT: Denies: nasal congestion Card: Denies: chest pain, palpitations, edema, swelling of feet/ankles, lightheadedness, syncope or dyspnea on exertion Resp: Denies: dyspnea, productive cough, non-productive cough or wheezing GI: Denies: abdominal pain, nausea, vomiting, hematemesis, diarrhea, constipation, hematochezia or melena : Denies: flank pain, dysuria or urinary frequency Musc: Denies: neck pain or back pain Skin/Breast: Denies: rash Neuro: Reports: headache(s); Denies: dizziness or vertigo Endo: Denies: polyuria, polydipsia or tired all the time Duncan/Lymph: Reports: easy bruising and petechiae Medications/Allergies Home Medications Medication Instructions Recorded Confirmed Last Taken Type Januvia 100 mg PO QAM 04/20/21 06/28/21 06/28/21 08:30 History acetaminophen 1,000 mg PO BID 04/20/21 06/28/21 04/19/21 History allopurinol 100 mg PO QAM 04/20/21 06/28/21 06/28/21 History calcium 1,200 mg PO QAM 04/20/21 06/28/21 06/28/21 History cholecalciferol (vitamin D3) 125 mcg PO QAM 04/20/21 06/28/21 06/28/21 History [Vitamin D3] cyanocobalamin (vitamin B-12) 1,000 mcg PO QAM 04/20/21 06/28/21 06/28/21 08:30 History [Vitamin B-12] gabapentin 100 - 200 mg PO BEDTIME 04/20/21 06/28/21 04/19/21 History glyburide See Rx Instructions .ROUTE .COMPLEX 04/20/21 06/28/21 06/28/21 08:30 History 10 mg magnesium 250 mg PO QAM 04/20/21 06/28/21 06/28/21 History metformin 1,000 mg PO BID 04/20/21 06/28/21 06/28/21 08:30 History simvastatin 40 mg PO QAM 04/20/21 06/28/21 06/28/21 History tramadol 50 mg PO TID PRN 04/20/21 06/28/21 06/28/21 08:30 History Allergies Allergy/AdvReac Type Severity Reaction Status Date / Time No Known Allergies Allergy Verified 06/28/21 14:08 PFSH Acute PFSH: Medical History (Updated 06/28/21 @ 16:31 by Dwayne Abreu MD) Diabetes mellitus Hypertension Surgical History (Updated 06/28/21 @ 16:29 by Dwayne Abreu MD) History of cholecystectomy Family History (Updated 06/28/21 @ 16:29 by Dwayne Abreu MD) Father CAD (coronary artery disease) Prostate cancer Mother CAD (coronary artery disease) Social History (Updated 06/28/21 @ 16:29 by Dwayne Abreu MD) Smoking and tobacco status: never smoked Alcohol intake: never Substance/Drug Use: never Vitals/I&O/Wt Last Vital Signs Temp 97.7 F 06/28/21 12:37 Pulse 82 06/28/21 15:00 Resp 14 06/28/21 15:00 BP 160/79 06/28/21 15:00 Pulse Ox 98 06/28/21 15:00 Weight last 48 hrs Weight 94.347 kg Physical Exam Const: COMMON NORMALS: no acute distress and patient oriented x3 GENERAL APPEARANCE: cooperative and comfortable HENMT: COMMON NORMALS: normocephalic HEAD & SCALP: normocephalic Eye: COMMON NORMALS: Equal, round and reactive pupils present and EOMs intact bilaterally GENERAL EYE: appearance normal, both eyes and all related structures PUPIL: Yes Equal, round and reactive pupils present Neck/C-Spine: COMMON NORMALS: full ROM, no lymphadenopathy and Thyroid normal Lymph: LYMPHATIC: no lymphadenopathy noted Resp: COMMON NORMALS: normal respiratory effort, No retractions, No use of accessory muscles and clear to auscultation bilaterally AUSCULTATION: clear to auscultation bilaterally Cardio: COMMON NORMALS: no JVD, regular rate, regular rhythm, S1 normal heart sound present, S2 normal heart sound present, No gallops present (Cardio), No clicks present (Cardio) and No murmurs present (Cardio) RATE: regular rate RHYTHM: regular rhythm HEART SOUNDS: S1 normal heart sound present and S2 normal heart sound present GI: COMMON NORMALS: Normal to inspection, nondistended, normoactive bowel sounds present, Soft to palpation, non-tender and No hepatosplenomegaly present PALPATION: Yes Soft to palpation and Yes No hepatosplenomegaly present Extremity: COMMON NORMALS: normal to inspection and no pedal edema Neuro: COMMON NORMALS: patient oriented x3, CN's II-XII intact bilaterally, moves all extremities and no focal motor deficits COORDINATION/BALANCE: [id number] test normal SPEECH: speech normal MOTOR EXAM: 5/5 motor strength present throughout COORDINATION: [id number] test normal Psych: COMMON NORMALS: mental status grossly normal THOUGHT PROCESS: Normal thought process present Data : 06/28/21 12:42 06/28/21 12:42 Micro: Microbiology 06/28/21 14:32 Blood Culture - Preliminary Blood SPECIMEN COLLECTED A&P Assessment and plan (1) Thrombocytopenia: 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 for 5 days -Monitor for signs of bleeding -ESR, peripheral smear, haptoglobin, LDH, ESR, HIV, acute hep panel, ultrasound spleen -Hold allopurinol -Anticoagulation for DVT prophylaxis contraindicated given thrombocytopenia -Full code TIA -Currently neurologically intact, NIH stroke score 0 -Aspirin currently contraindicated given thrombocytopenia as above -Continue IV fluids -Neurochecks, aspiration precautions -Carotid artery ultrasound, cardiac echo, telemetry monitoring, TSH -We will start PT OT once platelet count improves Alzheimer's dementia, currently alert oriented x3, follows commands, at risk of sundowning, place bed alarm UTI, Rocephin Type 2 diabetes mellitus, insulin sliding scale Status: Acute (2) TIA (transient ischemic attack): Status: Acute (3) UTI (urinary tract infection): Status: Acute Attestations Medical Necessity Statement*: Patient requires hospitalization, inpatient, greater than 2 minutes, for thrombocytopenia, TIA, UTI Coding Level of Care Code Acute Buttermaker Continuous Churn for [facility] Fwd Diagnoses Thrombocytopenia D69.6 TIA (transient ischemic attack) G45.9 UTI (urinary tract infection) N39.0
[2021-06-28 16:40] LABS: Lactate Dehydrogenase 206 U/L (135-214)
[2021-06-28 17:03] LABS: Glucose Point of Care 127 mg/dL (70-110)
[2021-06-28] MEDS: dexamethasone 4 mg Tablet 40 MG PO (17:25)
[2021-06-28] MEDS: acetaminophen 500 mg Tablet 1000 MG PO (17:25)
[2021-06-28 17:33] LABS: Hepatitis A Antibody IgM Non-Reactive (Nonreactive); Hepatitis B Core IgM Non-Reactive (Nonreactive); Hepatitis B Surface Antigen Non-Reactive (Nonreactive); Hepatitis C Virus Antibody Non-Reactive (Nonreactive)
--- NOTE | 2021-06-28 17:58 | PC.NURSE ---
2 units blood ready for patient, hgb 11.4 at this time, verified this order with Dr. Abreu who stated not to give pt the 2 units of blood but to give 2 units of platelets.
[2021-06-28 18:04] LABS: HIV 1 & 2 Antibody Non-Reactive (Non-Reactiv); HIV 1 & 2 Antigen Non-Reactive (Non-Reactiv)
[2021-06-28 19:09] LABS: LAB Peripheral Smear Sent for Review
[2021-06-28] MEDS: gabapentin 100 mg Capsule PO (20:53)
[2021-06-28 20:54] LABS: Glucose Point of Care 258 mg/dL (70-110)
[2021-06-28] MEDS: cefTRIAXone 1,000 MG in sodium chloride 0.9% (plus) 50 ML 100 MG IV (22:35)
[2021-06-28] MEDS: sodium chloride 0.9% 1,000 ML 75 ML IV (22:36)
[2021-06-29] VITALS (12 sets, daily range): BP systolic 113–145; BP diastolic 63–83; PULSE 65–77; RESP 14–17; TEMP 36.4–37; O2SAT 94–99
[2021-06-29] MEDS: cholecalciferol (vitamin D3) 5,000 unit Tablet 5000 UNIT PO (05:40)
[2021-06-29] MEDS: cyanocobalamin 1,000 mcg Tablet 1000 MCG PO (05:40)
[2021-06-29 05:55] LABS: Hematocrit 29.2 % (37.0-47.0); Hemoglobin 9.2 g/dL (11.5-15.3); Lymphocytes # 0.4 10^3/uL (0.8-4.8); Lymphocytes % 15.6 %; Mean Corpuscular HGB Conc 31.5 g/dL (30.0-36.0); Mean Corpuscular Hemoglobin 29.5 pg (28.0-34.0); Mean Corpuscular Volume 93.6 fl (81-99); Monocytes # 0.1 10^3/uL (0.2-0.9); Monocytes % 2.6 %; Neutrophils % 81.4 %; Nucleated Red Blood Cells % 0 %; Red Blood Count 3.12 10^6/uL (4.1-5.3); Red Cell Distribution Width 13.8 % (12.1-15.1); White Blood Count 2.7 10^3/uL (4.0-10.0)
[2021-06-29 06:01] LABS: INR 1.11 (0.8-1.2)
[2021-06-29 06:03] LABS: Partial Thromboplastin Time 27.7 SECONDS (23.9-36.7)
[2021-06-29 06:42] LABS: Alanine Aminotransferase 33 U/L (0-33); Albumin Level 3.4 g/dL (3.5-5.2); Alkaline Phosphatase 66 IU/L (35-105); Anion Gap 13.9 (5-19); Aspartate Amino Transferase 26 U/L (0-32); Blood Urea Nitrogen 20 mg/dL (8-23); Calcium 8.9 mg/dL (8.5-10.5); Carbon Dioxide 21 mmol/L (22-29); Chloride 101 mmol/L (98-107); Globulin 4.5 g/dL (1.3-4.6); Glucose 316 mg/dL (65-115); Magnesium 1.6 mg/dL (1.7-2.3); Osmolality Calculated 287 mOsm/kg (285-295); Phosphorus 3.2 mg/dL (2.5-4.5); Potassium 4.9 mmol/L (3.5-5.1); Sodium 131 mmol/L (136-145); Total Bilirubin 0.3 mg/dL (0.15-1.2); Total Protein 7.9 g/dL (6.6-8.7)
[2021-06-29 06:47] LABS: Glucose Point of Care 343 mg/dL (70-110)
[2021-06-29 07:07] LABS: Platelet Count 10 10^3/cmm (130-400)
[2021-06-29] MEDS: acetaminophen 500 mg Tablet 1000 MG PO ×2 (07:58→17:12)
[2021-06-29] MEDS: insulin lispro 100 unit/1 mL SUBCUT ×3 (07:58→17:12)
[2021-06-29 10:49] LABS: Platelet Count 25 10^3/cmm (130-400)
[2021-06-29] MEDS: sodium chloride 0.9% 1,000 ML 75 ML IV (11:32)
--- NOTE | 2021-06-29 12:09 | PC.CHAP ---
Pastoral Care Encounter/Spiritual Assessment Type of Contact [] Declined training and quality manager visit [] Patient/Family/Request visit [] Outpatient visit [] Follow-up visit [] Physician referral [] Code/Alert [x] Routine visit [] Staff referral [] Actively dying [] Patient sleeping [] Family support [] [] Out of room [] Palliative care [] [x] Receiving care in room [] Pre-surgical visit [] Trauma [x] Long length of stay [] ICU visit [] Other: Relational/Emotional Strength [x] Patient feels connected with others/family/visitors/staff [] Distress [] Loneliness/isolation [] Abandonment Spirituality of Patient [x] Person of Maria Elena [] Attends Protestant of their Maria Elena x] Believes in Prayer [] Reads Bible or Anglican materials [] There are Spiritual issues to be addressed Clinical Quality Assurance Associate Interventions [x] Prayer [x] Active listening [x] Non-anxious presence [x] Spiritual/emotional support [] Crisis/trauma care [x] Spiritual counseling [] Bereavement support [] Provided bereavement packet [] Provided Bible/devotional materials [] Provided toy/stuffed animal, coloring book to patient or family member [] Provided Communion [] Anointing/Desha [] Salvation [x] Completed spiritual assessment [] Other: Impact on Illness or Injury [] Angry [] Fearful [x] Anxious [] Often cries [] Exhaustion [] Unable to work [] Unable to attend voodoo [] Unable to walk/stand [] Unable to read [] Unable to drive [] Unable to eat/drink [] Unable to sleep [] Unable to be with family [] Patient intubated [] Other: Summary she has some mental issues but is able to communicate and knows her about her health it is good for her age has a good attitude and is going home Time spent with patient 10 mins
[2021-06-29 12:27] LABS: Glucose Point of Care 272 mg/dL (70-110)
[2021-06-29 14:18] LABS: EBV IGG TEST >750.00 U/mL; EBV IGM TEST <36.00 U/mL; EBV Nuclear AG >600.00 U/mL
--- NOTE | 2021-06-29 14:48 | P.PN_ITS ---
Subjective Subjective: Interval history: Patient was seen this morning, she is feeling well, sitting up to the side of bed, no fevers, chills, nausea, vomiting, no abdominal pain, no bleeding, no bloody or black stools, Vitals/I&O/Wt Last Vital Signs Temp 97.7 F 06/29/21 12:00 Pulse 74 06/29/21 12:00 Resp 16 06/29/21 12:00 BP 113/63 06/29/21 12:00 Pulse Ox 96 06/29/21 11:58 06/28/21 06/29/21 06/29/21 22:59 06:59 14:59 Intake Total 460 / 460 50 / 510 1560 / 1560 Balance 460 / 460 50 / 510 1560 / 1560 Weight last 48 hrs Weight 94.347 kg Physical Exam Const: COMMON NORMALS: no acute distress ORIENTATION/CONSCIOUSNESS: Yes awake, Yes oriented to person and Yes oriented to place; not oriented to time HENMT: COMMON NORMALS: normocephalic HEAD & SCALP: normocephalic Neck/C-Spine: COMMON NORMALS: no JVD Resp: COMMON NORMALS: normal respiratory effort, No retractions, No use of accessory muscles and clear to auscultation bilaterally AUSCULTATION: clear to auscultation bilaterally Cardio: COMMON NORMALS: no JVD, regular rate, regular rhythm, S1 normal heart sound present and S2 normal heart sound present RATE: regular rate RHYTHM: regular rhythm HEART SOUNDS: S1 normal heart sound present and S2 normal heart sound present GI: COMMON NORMALS: Normal to inspection, nondistended, normoactive bowel sounds present, Soft to palpation, non-tender, No hepatosplenomegaly present, no masses and no bruits PALPATION: Yes Soft to palpation and Yes No hepatosplen omegaly present Extremity: COMMON NORMALS: capillary refill normal, no clubbing, cyanosis or edema, no calf tenderness and no pedal edema Neuro: SENSORIUM/ORIENTATION: Yes oriented to person, Yes oriented to place and No oriented to time Psych: COMMON NORMALS: mental status grossly normal Data : 06/29/21 09:41 06/29/21 05:10 Micro: Microbiology 06/28/21 16:27 Blood Culture - Preliminary Blood SPECIMEN COLLECTED 06/28/21 14:32 Blood Culture - Preliminary Blood SPECIMEN COLLECTED A&P Assessment and plan (1) Thrombocytopenia: 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 for 5 days -Monitor for signs of bleeding -ESR, peripheral smear, haptoglobin, LDH, ESR, HIV negative, acute hep panel negative, ultrasound mild splenomegaly -Hold allopurinol -Anticoagulation for DVT prophylaxis contraindicated given thrombocytopenia -Full code TIA -Currently neurologically intact, NIH stroke score 0 -Head CT no acute stroke -Aspirin currently contraindicated given thrombocytopenia as above -Continue IV fluids -Neurochecks, aspiration precautions -Carotid artery ultrasound, cardiac echo mild LVH, telemetry monitoring, TSH -We will start PT OT once platelet count improves Alzheimer's dementia, currently alert oriented x3, follows commands, at risk of owning, place bed alarm UTI, Rocephin Type 2 diabetes mellitus, insulin sliding scale Status: Acute (2) TIA (transient ischemic attack): Status: Acute (3) UTI (urinary tract infection): Status: Acute Additional A&P Information Anemia, hemoglobin 9.2 continue to monitor Leukopenia, white blood cell count 2.7 continue to monitor Attestations Medical Necessity Statement*: Patient for thrombocytopenia, likely ITP Coding Level of Care Code Acute Electromedical Equipment Technician for Stephanie Andrade Diagnoses Thrombocytopenia D69.6 TIA (transient ischemic attack) G45.9 UTI (urinary tract infection) N39.0
--- NOTE | 2021-06-29 16:12 | US_ITS ---
WS: [id number] ULTRASOUND ABDOMEN LIMITED CLINICAL INFORMATION: spleen COMPARISON: None. FINDINGS: Spleen Splenomegaly: Mild Spleen measures 11.3 x 6.1 x 0.8 cm Left kidney: Left upper pole renal cyst measuring 1.9 x 1.6 x 1.4 CM. Hydronephrosis: None. Size: 10.6 cm x 6.1 cm x 4.3 cm. US/US abdomen limited [id number] IMPRESSION: 1. Mild splenomegaly measuring 11.3 x 6.1 x 12.8 cm 2. No hydronephrosis in the left kidney. 3. Simple left upper pole renal cyst.
--- NOTE | 2021-06-29 16:21 | USCV_ITS ---
Eugenia Osuna Age: 75 Gender: F : 1945 Exam Date: 06/29/2021 06:10 Ordering Phys: Dwayne Abreu MD Technologist: Linn Barrett Exam Location: [facility] Indication: TIA BP: 142 / 81 HR: 76 Rhythm: Sinus Technical Quality: Adequate MEASUREMENTS (Male / Female) Normal Values 2D ECHO LV Diastolic Diameter PLAX 3.7 cm 4.2 - 5.9 / 3.9 - 5.3 cm LV Systolic Diameter PLAX 2.7 cm IVS Diastolic Thickness 1.9 cm 0.6 - 1.0 / 0.6 - 0.9 cm IVS Systolic Thickness 1.8 cm LVPW Diastolic Thickness 2.0 cm 0.6 - 1.0 / 0.6 - 0.9 cm LVPW Systolic Thickness 2.3 cm LVOT Diameter 2.0 cm LV Ejection Fraction 2D Teich 51.6 % LV Ejection Fraction MOD 2C 58.0 % LV Ejection Fraction 2C AL 59.8 % LA Diameter 3.5 cm LA Width 3.8 cm LA Height 4.5 cm RA Width 2.7 cm RA Height 3.7 cm Aorta at Sinotubular Diameter 2.5 cm M-MODE Aortic Annulus Diameter 2.1 cm LA Ao Ratio MM 1.7 MV E Point Septal Separation 0.5 cm DOPPLER AV Peak Velocity 126.0 cm/s LVOT Peak Velocity 102.0 cm/s AV Area Cont Eq vti 3.0 cm squared AV Area Cont Eq pk 2.6 cm squared MV Peak Velocity 119.0 cm/s MV Area PHT 3.6 cm squared Mitral E to A Ratio 0.8 MV E' Velocity 49.5 cm/s Mitral E to MV E' Ratio 8.6 Mitral E to LV E' Lateral Ratio 6.7 Mitral E to LV E' Septal Ratio 12.2 TR Peak Velocity 179.3 cm/s TR Peak Gradient 12.9 mmHg TR Mean Velocity 151.9 cm/s TR Mean Gradient 9.5 mmHg TR Velocity Time Integral 51.9 cm TV Peak E Velocity 52.0 cm/s Right Atrial Pressure 3.0 mmHg Pulmonary Artery Systolic Pressu 15.9 mmHg PV Peak Velocity 83.0 cm/s RV Acceleration Time 0.1 s RV Ejection Time 0.4 s RV AcT/ET 0.1 FINDINGS Left Ventricle Normal left ventricular size. LV systolic function is normal with EF of 55-60%. No regional wall motion abnormalities. Mild to moderate Left ventricular hypertrophy is noted. Grade 1 diastolic dysfunction Right Ventricle The right ventricle is normal in size and function. Right Atrium The right atrium is normal in size. Left Atrium The left atrium is normal in size. Mitral Valve Structurally normal mitral valve without significant stenosis or prolapse. There is trace mitral regurgitation. Aortic Valve Structurally normal aortic valve without significant sclerosis or stenosis. There is no aortic regurgitation. Tricuspid Valve Structurally normal tricuspid valve without significant stenosis or regurgitation. Insufficient TR jet to calculate RVSP Pulmonic Valve Structurally normal pulmonic valve without significant stenosis. There is no pulmonic regurgitation. Pericardium Normal pericardium without effusion. Aorta Normal ascending aorta dimension. CONCLUSIONS LV systolic function is normal with EF of 55-60% Grade 1 diastolic dysfunction Mild to moderate left ventricular hypertrophy is seen Trace mitral regurgitation No comparison studies are available Justin Alexis MD (Electronically Signed) Final Date: 29 June 2021 11:19 S
--- NOTE | 2021-06-29 16:21 | USCV_ITS ---
JackelynEugenia alonso Age: 75 Gender: F : 1945 Exam Date: 06/29/2021 06:31 Ordering Phys: Dwayne Abreu MD Technologist: Linn Barrett [place] [facility] [place]: TIA Risk Factors: Previous Vascular Surgery: Right Brachial BP: / Left Brachial BP: / Right Left Velocity (cm/s) Spectral Plaque Velocity (cm/s) Spectral Plaque Syst/Diast Broadening Syst/Diast Broadening 76.10/ 0.00 Prox CCA 84.60 / 17.90 72.20/ 11.70 Mid CCA 66.70 / 14.50 64.50/ 13.20 Distal CCA 57.30 / 12.80 71.70/ 15.40 Prox ICA 49.20 / 13.40 58.40/ 18.70 Mid ICA 57.40 / 21.60 101.40/26.50 Distal ICA 85.70 / 17.10 164.70 ECA 80.30 1.33 ICA/CCA 1.01 Antegrade Vertebral Antegrade 28.00/ 6.20 cm/s 48.40/ 18.60 cm/s Tri Subclavian Tri 115.4 105.1 0 0 CONCLUSIONS Right ICA stenosis <50%. Moderate atheromatous plaque right carotid bulb/ICA. Left ICA stenosis <50%. Moderate atheromatous plaque left carotid bulb/ICA. Normal antegrade Doppler flow noted in the right vertebral artery. Normal antegrade Doppler flow noted in the left vertebral artery. Gume Quinones MD (Electronically Signed) Final Date: 29 June 2021 17:20 S
[2021-06-29 16:46] LABS: Erythrocyte Sedimentation Rate 45 mm/hr (0-15)
[2021-06-29 17:00] LABS: Glucose Point of Care 233 mg/dL (70-110)
[2021-06-29] MEDS: dexamethasone 4 mg Tablet 40 MG PO (17:14)
[2021-06-29 20:51] LABS: Glucose Point of Care 254 mg/dL (70-110)
[2021-06-29] MEDS: atorvastatin 40 mg Tablet 20 MG PO (21:45)
[2021-06-29] MEDS: gabapentin 100 mg Capsule PO (21:45)
[2021-06-29] MEDS: cefTRIAXone 1,000 MG in sodium chloride 0.9% (plus) 50 ML 100 MG IV (22:36)
[2021-06-30] VITALS (7 sets, daily range): BP systolic 132–155; BP diastolic 64–89; PULSE 59–80; RESP 16–93; TEMP 36.4–36.8; O2SAT 93–97
[2021-06-30] MEDS: cholecalciferol (vitamin D3) 5,000 unit Tablet 5000 UNIT PO (05:36)
[2021-06-30] MEDS: cyanocobalamin 1,000 mcg Tablet 1000 MCG PO (05:36)
[2021-06-30 05:42] LABS: Hematocrit 26.3 % (37.0-47.0); Hemoglobin 8.3 g/dL (11.5-15.3); Lymphocytes # 0.6 10^3/uL (0.8-4.8); Lymphocytes % 15.3 %; Mean Corpuscular HGB Conc 31.6 g/dL (30.0-36.0); Mean Corpuscular Hemoglobin 29.7 pg (28.0-34.0); Mean Corpuscular Volume 94.3 fl (81-99); Monocytes # 0.1 10^3/uL (0.2-0.9); Monocytes % 2.4 %; Neutrophils # 3.09 10^3/uL (1.8-7.7); Neutrophils % 81.5 %; Nucleated Red Blood Cells % 0 %; Red Blood Count 2.79 10^6/uL (4.1-5.3); Red Cell Distribution Width 14.3 % (12.1-15.1); White Blood Count 3.8 10^3/uL (4.0-10.0)
[2021-06-30 05:45] LABS: INR 1.12 (0.8-1.2)
[2021-06-30 05:54] LABS: Platelet Count 25 10^3/cmm (130-400)
[2021-06-30 05:56] LABS: Slide Review Slide Review Perform
[2021-06-30 06:03] LABS: Alanine Aminotransferase 33 U/L (0-33); Alkaline Phosphatase 55 IU/L (35-105); Anion Gap 13.8 (5-19); Aspartate Amino Transferase 28 U/L (0-32); Blood Urea Nitrogen 30 mg/dL (8-23); Calcium 8.5 mg/dL (8.5-10.5); Carbon Dioxide 20 mmol/L (22-29); Chloride 102 mmol/L (98-107); Globulin 5.5 g/dL (1.3-4.6); Glucose 354 mg/dL (65-115); Magnesium 1.7 mg/dL (1.7-2.3); Osmolality Calculated 292 mOsm/kg (285-295); Phosphorus 3.3 mg/dL (2.5-4.5); Potassium 4.8 mmol/L (3.5-5.1); Sodium 131 mmol/L (136-145); Total Bilirubin 0.2 mg/dL (0.15-1.2); Total Protein 8.5 g/dL (6.6-8.7)
[2021-06-30 06:29] LABS: Glucose Point of Care 387 mg/dL (70-110)
[2021-06-30] MEDS: insulin lispro 100 unit/1 mL SUBCUT ×3 (08:29→21:37)
[2021-06-30] MEDS: acetaminophen 500 mg Tablet 1000 MG PO ×2 (08:30→17:47)
[2021-06-30] MEDS: insulin glargine 100 units/1 mL 10 UNIT SUBCUT ×2 (11:04→21:37)
[2021-06-30 11:36] LABS: Glucose Point of Care 404 mg/dL (70-110)
--- NOTE | 2021-06-30 11:58 | P.PN_ITS ---
Subjective Subjective: Interval history: Patient was seen this morning, she sitting up to the side of bed, enjoying breakfast, she tells me that she is feeling well, alert to person, to place, not to time, I also saw her at bedside, no fevers, no cough, no bloody or black stools, no bleeding Vitals/I&O/Wt Last Vital Signs Temp 97.7 F 06/30/21 08:00 Pulse 70 06/30/21 08:00 Resp 93 H 06/30/21 08:00 BP 151/77 06/30/21 08:00 Pulse Ox 93 06/30/21 08:00 06/29/21 06/30/21 06/30/21 22:59 06:59 14:59 Intake Total 900 / 2700 170 / 2870 1000 / 1000 Output Total 450 / 450 Balance 900 / 2700 170 / 2870 550 / 550 Weight last 48 hrs Weight 94.347 kg Physical Exam Const: COMMON NORMALS: no acute distress and patient oriented x3 Resp: COMMON NORMALS: normal respiratory effort, No retractions, No use of accessory muscles and clear to auscultation bilaterally AUSCULTATION: clear to auscultation bilaterally Cardio: COMMON NORMALS: regular rate, regular rhythm, S1 normal heart sound present and S2 normal heart sound present RATE: regular rate RHYTHM: regular rhythm HEART SOUNDS: S1 normal heart sound present and S2 normal heart sound present GI: COMMON NORMALS: Normal to inspection, nondistended, normoactive bowel sounds present, Soft to palpation and non-tender PALPATION: Yes Soft to palpation Extremity: COMMON NORMALS: no pedal edema Neuro: COMMON NORMALS: patient oriented x3 Psych: COMMON NORMALS: mental status grossly normal Data : 06/30/21 04:57 06/30/21 04:57 Micro: Microbiology 06/28/21 16:27 Blood Culture - Preliminary Blood NEGATIVE TO DATE 06/28/21 14:32 Blood Culture - Preliminary Blood NEGATIVE TO DATE A&P Assessment and plan (1) Thrombocytopenia: 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 for 5 days -Monitor for signs of bleeding -HIV negative, acute hep panel negative, ultrasound mild splenomegaly -Hold allopurinol -Anticoagulation for DVT prophylaxis contraindicated given thrombocytopenia -Full code Anemia, hemoglobin 8.3, no overt signs of bleeding, on Protonix 40 twice daily, Hemoccult stool, likely the effect of IVIG Leukopenia, white blood cell count 3.8, likely effect of IVIG TIA -Currently neurologically intact, NIH stroke score 0 -Head CT no acute stroke -Aspirin currently contraindicated given thrombocytopenia as above -Neurochecks, aspiration precautions -Carotid artery ultrasound no hemodynamically significant stenosis, cardiac echo mild LVH, telemetry monitoring, TSH -Is sitting up to the side of bed PT OT today Alzheimer's dementia, currently alert oriented x3, follows commands, at risk of ing, place bed alarm UTI, Rocephin Type 2 diabetes mellitus, insulin sliding scale Status: Acute (2) TIA (transient ischemic attack): Status: Acute (3) UTI (urinary tract infection): Status: Acute Additional A&P Information Anemia, hemoglobin 9.2 continue to monitor Leukopenia, white blood cell count 2.7 continue to monitor Attestations Medical Necessity Statement*: Patient requires hospitalization for ITP, anemia, leukopenia, TIA Coding Level of Care Code Acute Hardness Inspector for [facility] Diagnoses Thrombocytopenia D69.6 TIA (transient ischemic attack) G45.9 UTI (urinary tract infection) N39.0
--- NOTE | 2021-06-30 13:01 | PC.CHAP ---
Pastoral Care Encounter/Spiritual Assessment Type of Contact [] Declined heel seat laster visit [] Patient/Family/Request visit [] Outpatient visit [xx] Follow-up visit [] Physician referral [] Code/Alert [xx] Routine visit [] Staff referral [] Actively dying [] Patient sleeping [] Family support [] [] Out of room [] Palliative care [] [] Receiving care in room [] Pre-surgical visit [] Trauma [] Long length of stay [] ICU visit [] Other: Relational/Emotional Strength [xx] Patient feels connected with others/family/visitors/staff [] Distress [] Loneliness/isolation [] Abandonment Spirituality of Patient [xx] Person of Maria Elena [xx] Attends Caodaism of their Maria Elena [xx] Believes in Prayer [xx] Reads Bible or Zoroastrian materials [] There are Spiritual issues to be addressed Software Design Manager Interventions [xx] Prayer [xx] Active listening [xx] Non-anxious presence [] Spiritual/emotional support [] Crisis/trauma care [] Spiritual counseling [] Bereavement support [] Provided bereavement packet [] Provided Bible/devotional materials [] Provided toy/stuffed animal, coloring book to patient or family member [] Provided Communion [] Anointing/Crossroads [] Salvation [xx] Completed spiritual assessment [] Other: Impact on Illness or Injury [] Angry [] Fearful [] Anxious [] Often cries [] Exhaustion [] Unable to work [] Unable to attend latter day [] Unable to walk/stand [] Unable to read [] Unable to drive [] Unable to eat/drink [] Unable to sleep [] Unable to be with family [] Patient intubated [] Other: Summary Director Nicu and another person present. Director Nicu stated that patient has had a very difficult year, losing 2 relatives and her as well as several health issues. Patient did not speak much. Her synagogue had sent her edwards as reminder of their concern for her. Time spent with patient 5 minutes
[2021-06-30] MEDS: pantoprazole DR 40 mg Tablet PO ×2 (13:59→21:37)
[2021-06-30 17:06] LABS: Glucose Point of Care 239 mg/dL (70-110)
[2021-06-30] MEDS: dexamethasone 4 mg Tablet 40 MG PO (17:47)
[2021-06-30 20:29] LABS: Glucose Point of Care 296 mg/dL (70-110)
[2021-06-30] MEDS: gabapentin 100 mg Capsule PO (21:37)
[2021-06-30] MEDS: atorvastatin 40 mg Tablet 20 MG PO (21:37)
[2021-06-30] MEDS: cefTRIAXone 1,000 MG in sodium chloride 0.9% (plus) 50 ML 100 MG IV (23:22)
[2021-07-01 00:22] VITALS: BP 117/75; PULSE 122; RESP 18; TEMP 38.3; O2SAT 90
[2021-07-01 04:00] VITALS: BP 153/66; PULSE 67; RESP 17; TEMP 36.3; O2SAT 95
[2021-07-01] MEDS: cyanocobalamin 1,000 mcg Tablet 1000 MCG PO (05:48)
[2021-07-01] MEDS: cholecalciferol (vitamin D3) 5,000 unit Tablet 5000 UNIT PO (05:49)
[2021-07-01 06:32] LABS: Glucose Point of Care 338 mg/dL (70-110)
[2021-07-01 06:47] LABS: Hematocrit 27.7 % (37.0-47.0); Hemoglobin 8.5 g/dL (11.5-15.3); Lymphocytes # 0.7 10^3/uL (0.8-4.8); Lymphocytes % 15.2 %; Mean Corpuscular HGB Conc 30.7 g/dL (30.0-36.0); Mean Corpuscular Hemoglobin 29.1 pg (28.0-34.0); Mean Corpuscular Volume 94.9 fl (81-99); Monocytes # 0.1 10^3/uL (0.2-0.9); Monocytes % 2.5 %; Neutrophils # 3.52 10^3/uL (1.8-7.7); Neutrophils % 81.4 %; Nucleated Red Blood Cells % 0 %; Platelet Count 32 10^3/cmm (130-400); Red Blood Count 2.92 10^6/uL (4.1-5.3); White Blood Count 4.3 10^3/uL (4.0-10.0)
[2021-07-01 07:01] LABS: INR 1.16 (0.8-1.2)
[2021-07-01 07:12] LABS: Alanine Aminotransferase 57 U/L (0-33); Albumin Level 3.3 g/dL (3.5-5.2); Alkaline Phosphatase 57 IU/L (35-105); Anion Gap 12.9 (5-19); Aspartate Amino Transferase 56 U/L (0-32); Blood Urea Nitrogen 35 mg/dL (8-23); Calcium 8.6 mg/dL (8.5-10.5); Carbon Dioxide 23 mmol/L (22-29); Chloride 105 mmol/L (98-107); Glucose 307 mg/dL (65-115); Osmolality Calculated 302 mOsm/kg (285-295); Phosphorus 3.6 mg/dL (2.5-4.5); Potassium 4.9 mmol/L (3.5-5.1); Sodium 136 mmol/L (136-145); Total Bilirubin 0.3 mg/dL (0.15-1.2); Total Protein 8.3 g/dL (6.6-8.7)
[2021-07-01 08:00] VITALS: BP 157/73; PULSE 75; RESP 18; O2SAT 94
[2021-07-01] MEDS: pantoprazole DR 40 mg Tablet PO ×2 (08:05→21:15)
[2021-07-01] MEDS: acetaminophen 500 mg Tablet 1000 MG PO ×2 (08:05→17:11)
[2021-07-01] MEDS: insulin lispro 100 unit/1 mL SUBCUT ×4 (08:07→21:17)
[2021-07-01] MEDS: insulin glargine 100 units/1 mL 15 UNIT SUBCUT ×2 (09:33→21:17)
--- NOTE | 2021-07-01 09:33 | PC.SOCIAL ---
IMM updated IMM signed, dated and copy given to patient.
[2021-07-01 11:07] LABS: Glucose Point of Care 339 mg/dL (70-110)
[2021-07-01 11:41] VITALS: BP 122/58; PULSE 65; RESP 18; O2SAT 98
--- NOTE | 2021-07-01 15:59 | P.PN_ITS ---
Subjective Subjective: Interval history: Patient was seen this morning, she has no complaints, no fevers, chills, no nausea, no vomiting, her blood sugars are elevated, is at bedside, he is concerned about her going home, as he does not have the appropriate means to take care of her, he is wondering if she would benefit from retirement facility Vitals/I&O/Wt Last Vital Signs Temp 97.3 F L 07/01/21 04:00 Pulse 65 07/01/21 11:41 Resp 18 07/01/21 11:41 BP 122/58 07/01/21 11:41 Pulse Ox 98 07/01/21 11:41 07/01/21 07/01/21 07/01/21 06:59 14:59 22:59 Intake Total 50 / 1050 480 / 480 Balance 50 / -100 480 / 480 Physical Exam Const: COMMON NORMALS: no acute distress and patient oriented x3 Resp: COMMON NORMALS: normal respiratory effort, No retractions, No use of accessory muscles and clear to auscultation bilaterally AUSCULTATION: clear to auscultation bilaterally Cardio: COMMON NORMALS: regular rate, regular rhythm, S1 normal heart sound present and S2 normal heart sound present RATE: regular rate RHYTHM: regular rhythm HEART SOUNDS: S1 normal heart sound present and S2 normal heart sound present GI: COMMON NORMALS: Normal to inspection, nondistended, normoactive bowel sounds present, Soft to palpation and non-tender PALPATION: Yes Soft to palpation Extremity: COMMON NORMALS: no pedal edema Neuro: COMMON NORMALS: patient oriented x3 Psych: COMMON NORMALS: mental status grossly normal Data : 07/01/21 05:01 07/01/21 05:01 A&P Assessment and plan (1) Thrombocytopenia: 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 for 5 days -Monitor for signs of bleeding -HIV negative, acute hep panel negative, ultrasound mild splenomegaly -Hold allopurinol -Anticoagulation for DVT prophylaxis contraindicated given thrombocytopenia -Full code Anemia, hemoglobin 8.5, no overt signs of bleeding, on Protonix 40 twice daily, Hemoccult stool, likely the effect of IVIG Leukopenia, white blood cell count four-point, likely effect of IVIG TIA -Currently neurologically intact, NIH stroke score 0 -Head CT no acute stroke -Aspirin currently contraindicated given thrombocytopenia as above -Neurochecks, aspiration precautions -Carotid artery ultrasound no hemodynamically significant stenosis, cardiac echo mild LVH, telemetry monitoring, TSH -Is sitting up to the side of bed PT OT today Alzheimer's dementia, currently alert oriented x3, follows commands, at risk of owning, place bed alarm UTI, Rocephin Type 2 diabetes mellitus, insulin sliding scale, Lantus 15 units every 12 hours Plan for today PT OT, titrate insulin, monitor platelet count, hemoglobin Status: Acute (2) TIA (transient ischemic attack): Status: Acute (3) UTI (urinary tract infection): Status: Acute Additional A&P Information Anemia, hemoglobin 9.2 continue to monitor Leukopenia, white blood cell count 2.7 continue to monitor Attestations Medical Necessity Statement*: Patient requires hospitalization for thrombocytopenia, anemia, TIA, UTI Coding Level of Care Code Acute [employer] for [employer] Diagnoses Thrombocytopenia D69.6 TIA (transient ischemic attack) G45.9 UTI (urinary tract infection) N39.0
[2021-07-01 16:00] VITALS: BP 126/79; PULSE 61; RESP 16; O2SAT 97
[2021-07-01 16:53] LABS: Glucose Point of Care 226 mg/dL (70-110)
[2021-07-01] MEDS: dexamethasone 4 mg Tablet 40 MG PO (17:11)
[2021-07-01 20:00] VITALS: BP 157/86; PULSE 60; RESP 18; TEMP 37; O2SAT 98
[2021-07-01] MEDS: atorvastatin 40 mg Tablet 20 MG PO (21:15)
[2021-07-01] MEDS: gabapentin 100 mg Capsule PO (21:15)
[2021-07-01 21:39] LABS: Glucose Point of Care 314 mg/dL (70-110)
[2021-07-01] MEDS: cefTRIAXone 1,000 MG in sodium chloride 0.9% (plus) 50 ML 100 MG IV (22:27)
[2021-07-02] VITALS: BP 159/97; PULSE 63; RESP 18; TEMP 36.6; O2SAT 57
[2021-07-02 03:55] VITALS: BP 166/78; PULSE 68; RESP 18; TEMP 36.3; O2SAT 98
[2021-07-02 05:07] LABS: Hematocrit 27.5 % (37.0-47.0); Hemoglobin 8.4 g/dL (11.5-15.3); Lymphocytes # 0.7 10^3/uL (0.8-4.8); Lymphocytes % 16.5 %; Mean Corpuscular HGB Conc 30.5 g/dL (30.0-36.0); Mean Corpuscular Hemoglobin 28.5 pg (28.0-34.0); Mean Corpuscular Volume 93.2 fl (81-99); Monocytes # 0.2 10^3/uL (0.2-0.9); Monocytes % 4.1 %; Neutrophils # 3.29 10^3/uL (1.8-7.7); Neutrophils % 78.4 %; Nucleated Red Blood Cells % 0 %; Platelet Count 38 10^3/cmm (130-400); Red Blood Count 2.95 10^6/uL (4.1-5.3); Red Cell Distribution Width 13.8 % (12.1-15.1); White Blood Count 4.2 10^3/uL (4.0-10.0)
[2021-07-02 05:14] LABS: Mean Platelet Volume 11.5 fL (7.4-10.4)
[2021-07-02 05:31] LABS: Alanine Aminotransferase 88 U/L (0-33); Albumin Level 3.2 g/dL (3.5-5.2); Alkaline Phosphatase 56 IU/L (35-105); Anion Gap 13.3 (5-19); Aspartate Amino Transferase 79 U/L (0-32); Blood Urea Nitrogen 37 mg/dL (8-23); Calcium 8.1 mg/dL (8.5-10.5); Carbon Dioxide 21 mmol/L (22-29); Chloride 106 mmol/L (98-107); Globulin 4.8 g/dL (1.3-4.6); Glucose 253 mg/dL (65-115); Osmolality Calculated 299 mOsm/kg (285-295); Potassium 4.3 mmol/L (3.5-5.1); Sodium 136 mmol/L (136-145); Total Bilirubin 0.4 mg/dL (0.15-1.2)
[2021-07-02] MEDS: cyanocobalamin 1,000 mcg Tablet 1000 MCG PO (05:36)
[2021-07-02] MEDS: cholecalciferol (vitamin D3) 5,000 unit Tablet 5000 UNIT PO (05:36)
[2021-07-02 06:41] LABS: Glucose Point of Care 286 mg/dL (70-110)
[2021-07-02 07:58] VITALS: BP 186/79; PULSE 62; RESP 16; TEMP 36.5; O2SAT 97
[2021-07-02] MEDS: insulin glargine 100 units/1 mL 20 UNIT SUBCUT (09:16)
[2021-07-02] MEDS: insulin lispro 100 unit/1 mL SUBCUT ×2 (09:16→12:55)
[2021-07-02] MEDS: acetaminophen 500 mg Tablet 1000 MG PO (09:17)
[2021-07-02] MEDS: pantoprazole DR 40 mg Tablet PO (09:17)
--- NOTE | 2021-07-02 10:42 | P.DS_ITS ---
Discharge Providers Date of Admission: 06/28/21 14:37 Date of Discharge: July 02, 2021 Attending Provider at Admission: Dwayne Abreu MD Attending Provider at Discharge: Dwayne Abreu MD Primary Care Provider: Lars Chavez DO Diagnoses at Discharge Discharge Diagnosis (1) Thrombocytopenia: Status: Acute (2) TIA (transient ischemic attack): Status: Acute (3) UTI (urinary tract infection): Status: Acute Reason for Visit Reason for Visit: Confused, unable to read at times, diabetic Hospital Course Hospital Course Eugenia Osuna is a 75 year old female with a past medical history of dementia, noninsulin-dependent type 2 diabetes mellitus, hypertension, history of COVID-19 infection in April, who presents to [facility] due to complaints of aphasia. For her aphasia, likely TIA, out of TPA window, neurologically intact, NIH stroke scale 0, head CT no acute stroke, carotid artery ultrasound no hemodynamically significant stenosis, cardiac echo mild LVH, did well with physical therapy. For now aspirin is relatively contraindicated given her thrombocytopenia and anemia as below, continue statin, follow-up with primary care provider as outpatient Patient also had UA evidence of UTI, blood cultures unremarkable, finished inpatient antibiotic treatment Patient was found to incidentally have thrombocytopenia during her initial hospitalization, platelet count 4000, no clinical signs of bleeding, likely ITP, managed with 2 doses of IVIG and Decadron, platelet count improved, on discharge was 30,000. She also had an ultrasound evidence of mild splenomegaly, HIV negative, acute hep panel negative, allopurinol was held. On discharge will be discharged on a prednisone taper, with close follow-up with Dr. Miles as outpatient. For her anemia, hemoglobin down to 8.3, likely secondary to IVIG, continue to monitor, discharge is 8.4 Leukopenia, down to 2.7, 4.2 on discharge, likely second IVIG Patient had hyperglycemia secondary to Decadron, underlying type 2 diabetes mellitus, discharged on Lantus 20 units twice daily, and Humalog sliding scale as below, follow-up with primary care -Please use prednisone as prescribed -Please follow-up with Dr. Miles in the next few days -Please inject insulin as prescribed -Take Lantus 20 units twice daily -As the effect of steroids decreases, your insulin needs will also decrease -Take Humalog subcutaneously, 3 times daily, before meals, based on insulin sliding scale provided below -Do not inject Humalog insulin if you do not eat, as it is associated with hy poglycemia, which is associate with morbidity and mortality -If your blood sugars greater than 500, please call primary care -Record blood sugars 3 times daily, bring blood sugar logs to her primary care physician's office -If less then 60, drink or juice or eat a hard candy, and call primary care -Sliding scale as below Fingerstick Blood Glucose Insulin Units 141-180 mg/dl 4 units/SQ 181-220 mg/dl 6 units/SQ 221-260 mg/dl 8 units/SQ 261-300 mg/dl 10 units/SQ 301-350 mg/dl 12 units/SQ 351-400 mg/dl 14 units/SQ greater than 400 mg/dl 16 units/SQ Physical Exam Const: COMMON NORMALS: no acute distress ORIENTATION/CONSCIOUSNESS: Yes awake, Yes oriented to person and Yes oriented to place; not oriented to time Resp: COMMON NORMALS: normal respiratory effort, No retractions, No use of accessory muscles and clear to auscultation bilaterally AUSCULTATION: clear to auscultation bilaterally Cardio: COMMON NORMALS: regular rate, regular rhythm, S1 normal heart sound present and S2 normal heart sound present RATE: regular rate RHYTHM: regular rhythm HEART SOUNDS: S1 normal heart sound present and S2 normal heart sound present GI: COMMON NORMALS: Normal to inspection, nondistended, normoactive bowel sounds present, Soft to palpation and non-tender PALPATION: Yes Soft to palpation Extremity: COMMON NORMALS: no pedal edema Neuro: SENSORIUM/ORIENTATION: Yes oriented to person, Yes oriented to place and No oriented to time Psych: COMMON NORMALS: mental status grossly normal Discharge Data Data Completed and Pending: Completed Studies During Hospitalization Category Date Time Status CT head wo con* 7 0450 Stat Cat Scan 06/28/21 12:39 Completed XR chest 1V osmel ble [id number] Stat Exams 06/28/21 13:47 Completed CV carotid duplex BI* [id number] Routine Ultrasound 06/29/21 16:21 Completed CV. echo complete * [id number] Routine Ultrasound 06/29/21 16:21 Completed US abdomen limite d [id number] Routine Ultrasound 06/29/21 16:12 Completed Pending at discharge Category Date Time Status ABO/Rh Type Routi ne Lab 06/28/21 14:32 Results Blood Culture Sta t Lab 06/28/21 16:27 Results Complete Crossmat ch Routine Lab 06/28/21 14:32 Results Immunochemical Fe ford OCB Routine Lab 06/30/21 12:02 Uncollected Platelets Leuko-R educed Routine Lab 06/28/21 14:32 Results Type and Screen R outine Lab 06/28/21 14:32 Results Labs from last 24 hours 07/02/21 07/02/21 07/02/21 06:18 04:08 04:08 WBC 4.2 RBC 2.95 L Hgb 8.4 L Hct 27.5 L MCV 93.2 MCH 28.5 MCHC 30.5 RDW 13.8 Plt Count 38 L MPV 11.5 H Neut % (Auto) 78.4 Lymph % (Auto) 16.5 [place] % (Auto) 4.1 Eos % (Auto) 0.0 Baso % (Auto) 0.0 Neut # (Auto) 3.29 Lymph # (Auto) 0.7 L [place] # (Auto) 0.2 Eos # (Auto) 0.0 Baso # (Auto) 0.0 Nucleated RBC % (a uto) 0 Nucleated RBCs # 0.0 Sodium 136 Potassium 4.3 Chloride 106 Carbon Dioxide 21 L Anion Gap 13.3 BUN 37 H Creatinine 1.1 H GFR Calculation Not Reportable Glucose 253 H POC Glucose 286 H Calculated Osmolal ity 299 H Calcium 8.1 L Total Bilirubin 0.4 AST 79 H ALT 88 H Alkaline Phosphata se 56 Total Protein 8.0 Albumin 3.2 L Globulin 4.8 H Crossmatch 07/01/21 07/01/21 07/01/21 19:46 16:46 11:02 WBC RBC Hgb Hct MCV MCH MCHC RDW Plt Count MPV Neut % (Auto) Lymph % (Auto) [place] % (Auto) Eos % (Auto) Baso % (Auto) Neut # (Auto) Lymph # (Auto) [place] # (Auto) Eos # (Auto) Baso # (Auto) Nucleated RBC % (a uto) Nucleated RBCs # Sodium Potassium Chloride Carbon Dioxide Anion Gap BUN Creatinine GFR Calculation Glucose POC Glucose 314 H 226 H 339 H Calculated Osmolal ity Calcium Total Bilirubin AST ALT Alkaline Phosphata se Total Protein Albumin Globulin Crossmatch 06/28/21 14:32 WBC RBC Hgb Hct MCV MCH MCHC RDW Plt Count MPV Neut % (Auto) Lymph % (Auto) [place] % (Auto) Eos % (Auto) Baso % (Auto) Neut # (Auto) Lymph # (Auto) [place] # (Auto) Eos # (Auto) Baso # (Auto) Nucleated RBC % (a uto) Nucleated RBCs # Sodium Potassium Chloride Carbon Dioxide Anion Gap BUN Creatinine GFR Calculation Glucose POC Glucose Calculated Osmolal ity Calcium Total Bilirubin AST ALT Alkaline Phosphata se Total Protein Albumin Globulin Crossmatch See Detail Vitals: Last Vital Signs Temp 97.7 F 07/02/21 07:58 Pulse 62 07/02/21 07:58 Resp 16 07/02/21 07:58 BP 186/79 07/02/21 07:58 Pulse Ox 97 07/02/21 07:58 Discharge Plan Discharge Patient Disposition: Home Condition: Stable Prescriptions: New pantoprazole 40 mg Tablet,Delayed Release (Dr/Ec) 40 mg PO 0900,2100 30 Days Qty: 60 RF: 0 prednisone 10 mg tablet See Rx Instructions .ROUTE .COMPLEX Qty: 42 RF: 0 Lantus Solostar U-100 Insulin 100 unit/mL (3 mL) insulin pen 20 unit SUBCUT BID 30 Days Qty: 12 RF: 0 Humalog Preston KwikPen U-100 100 unit/mL insulin pen, half-unit See Rx Instructions .ROUTE .COMPLEX Qty: 15 RF: 0 Continued calcium 600 mg Capsule 1,200 mg PO QAM RF: 0 cyanocobalamin (vitamin B-12) [Vitamin B-12] 1,000 mcg Tablet 1,000 mcg PO QAM RF: 0 tramadol 50 mg tablet 50 mg PO TID PRN (Reason: Pain) RF: 0 acetaminophen 500 mg Tablet 1,000 mg PO BID RF: 0 simvastatin 40 mg tablet 40 mg PO QAM RF: 0 metformin 1,000 mg tablet 1,000 mg PO BID RF: 0 magnesium 250 mg Tablet 250 mg PO QAM RF: 0 gabapentin 100 mg capsule 100 - 200 mg PO BEDTIME RF: 0 Januvia 100 mg tablet 100 mg PO QAM RF: 0 cholecalciferol (vitamin D3) [Vitamin D3] 125 mcg (5,000 unit) Tablet 125 mcg PO QAM RF: 0 Discontinued glyburide 5 mg tablet See Rx Instructions .ROUTE .COMPLEX RF: 0 allopurinol 100 mg tablet 100 mg PO QAM RF: 0 Discharge Orders: Discharge Order (Routine); Ordered 07/02/21 Ordered By: Dwayne Abreu Referrals: [facility] ([facility]) [Outside] ([facility] has accepted you for Home Health services. They will be contacting you about a time to admit you to their services. If you have any questions please call them at [phone].) Lars Miles MD [Hospitalist] - 1-3 days (Please call Saturday to schedule a follow up appointment. ITP) Lars Chavez DO [Primary Care Provider] - 4-7 days (Please call Saturday to schedule a follow up appointment. ) Discharge Diet: Diabetic Discharge Activity: Resume usual activity Patient Instructions: Prednisone (By mouth), Pantoprazole (By mouth), Insulin Glargine (By injection) (Lantus, Lantus SoloStar, Toujeo, Semglee), Insulin Lispro (By injection) (HumaLOG, HumaLOG Pen, Lispro-PFC,..., Urinary Tract Infection in Women (GEN), Thrombocytopenia (GEN), Opioid Safety, TIA Activity Restrictions/Additional Instructions: -Please use prednisone as prescribed -Please follow-up with Dr. Miles in the next few days -Please inject insulin as prescribed -Take Lantus 20 units twice daily -As the effect of steroids decreases, your insulin needs will also decrease -Take Humalog subcutaneously, 3 times daily, before meals, based on insulin sliding scale provided below -Do not inject Humalog insulin if you do not eat, as it is associated with hypoglycemia, which is associate with morbidity and mortality -If your blood sugars greater than 500, please call primary care -If less then 60, drink or juice or eat a hard candy, and call primary care -Sliding scale as below Fingerstick Blood Glucose Insulin Units 141-180 mg/dl 4 units/SQ 181-220 mg/dl 6 units/SQ 221-260 mg/dl 8 units/SQ 261-300 mg/dl 10 units/SQ 301-350 mg/dl 12 units/SQ 351-400 mg/dl 14 units/SQ greater than 400 mg/dl 16 units/SQ Discharge Attestations Time Spent in Discharge Care*: less than 30 min Status at Discharge: Cognitive status at discharge: cognitively intact , Behavioral status at discharge: [facility] , Quality Metrics Clinical Quality Measures During this hospital stay, did patient experience: Stroke Contraindication to Antithrombotic: Medical contraindication Contraindication to Anticoagulation: Medical contraindication Contraindication to Statin: Statin prescribed Coding Level of Care Code Acute [facility] DC note Diagnoses Thrombocytopenia D69.6 TIA (transient ischemic attack) G45.9 UTI (urinary tract infection) N39.0
[2021-07-02 11:53] LABS: Glucose Point of Care 273 mg/dL (70-110)
[2021-07-02 12:00] VITALS: BP 165/75; PULSE 67; RESP 17; TEMP 36.6; O2SAT 97
[2021-07-02 13:40] VITALS: BP 165/75; PULSE 67; RESP 17; TEMP 36.6; O2SAT 97
== END 2021-07-02 13:40 | disposition home health service (06) | DRG 813 ==
LOC: ER 12:39 → MEDSURG 15:04
PROVIDERS: Admitting Provider Family Medicine; Emergency Provider Family Medicine; PCP Internal Medicine; Visit Provider Family Medicine
DX: D69.3 Immune thrombocytopenic purpura (principal); N39.0 Urinary tract infection, site not specified; G45.9 Transient cerebral ischemic attack, unspecified; E11.65 Type 2 diabetes mellitus with hyperglycemia; T38.0X5A Adverse effect of glucocorticoids and synthetic analogues, initial encounter; I10 Essential (primary) hypertension; G30.9 Alzheimer's disease, unspecified; F02.80 Dementia in other diseases classified elsewhere, unspecified severity, without behavioral disturbance, psychotic disturbance, mood disturbance, and anxiety; Z86.16 Personal history of COVID-19; Z79.84 Long term (current) use of oral hypoglycemic drugs; Z79.891 Long term (current) use of opiate analgesic
CPT/HCPCS: 36415; 36416; 36430; 70450; 71045; 76705; 80053; 80074; 81001; 82550; 82962; 83010; 83615; 83735; 84100; 84443; 85025; 85049; 85610; 85651; 85730; 86664; 86665; 86850; 86900; 86920; 87040; 87806; 93005; 93306; 93880; 96372; 96374; 96376; 97161; 97162; 97165; 97530; 99285; J0696; J1568; J1815 ×2; J7030; J8540; P9035

== ENCOUNTER 2021-07-03 15:05 | Outpatient (CLI) | payer MEDICARE, BC, SELFPAY ==
[2021-07-03 16:24] LABS: Hematocrit 30.5 % (37.0-47.0); Hemoglobin 9.7 g/dL (11.5-15.3); Lymphocytes # 0.6 10^3/uL (0.8-4.8); Lymphocytes % 9.9 %; Mean Corpuscular HGB Conc 31.8 g/dL (30.0-36.0); Mean Corpuscular Hemoglobin 29.7 pg (28.0-34.0); Mean Corpuscular Volume 93.3 fl (81-99); Mean Platelet Volume 14.4 fL (7.4-10.4); Monocytes # 0.3 10^3/uL (0.2-0.9); Neutrophils # 5.09 10^3/uL (1.8-7.7); Neutrophils % 84.3 %; Nucleated Red Blood Cells % 0 %; Platelet Count 58 10^3/cmm (130-400); Red Blood Count 3.27 10^6/uL (4.1-5.3); Red Cell Distribution Width 13.7 % (12.1-15.1)
[2021-07-03 16:44] LABS: Alanine Aminotransferase 109 U/L (0-33); Albumin Level 3.3 g/dL (3.5-5.2); Alkaline Phosphatase 62 IU/L (35-105); Anion Gap 16.3 (5-19); Aspartate Amino Transferase 87 U/L (0-32); Blood Urea Nitrogen 32 mg/dL (8-23); Calcium 8.1 mg/dL (8.5-10.5); Carbon Dioxide 21 mmol/L (22-29); Chloride 107 mmol/L (98-107); Globulin 4.3 g/dL (1.3-4.6); Glucose 289 mg/dL (65-115); Lactate Dehydrogenase 225 U/L (135-214); Osmolality Calculated 307 mOsm/kg (285-295); Potassium 4.3 mmol/L (3.5-5.1); Sodium 140 mmol/L (136-145); Total Bilirubin 0.6 mg/dL (0.15-1.2); Total Protein 7.6 g/dL (6.6-8.7)
[2021-07-03 17:28] LABS: Slide Review Slide Review Perform
[2021-07-03 17:47] LABS: LAB Peripheral Smear Sent for Review
--- NOTE | 2021-07-03 19:02 | ONC CON_ITS ---
Dr. Jd Matos Patient Note Patient: Eugenia Osuna Unit #: [id number]: [id number] Dicatated By: Lars Miles M.D.Date of Visit: Jul 03, 2021 Onc MED New Patient/Consult Referring Physician: Dr. Lars Chavez M.D. Chief Complaint: Thrombocytopenia. 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 This patient has hypertension, hyperlipidemia, and type 2 diabetes. She also has Alzheimer's type dementia, which had been worsening gradually. On 04/20/2021 she was admitted to the hospital after presenting to the emergency room with cough and fever. Her rapid Covid test was negative, but a subsequent PCR did come back positive for COVID-19 virus infection. In the meantime, she had been discharged on empiric oral antibiotic therapy with doxycycline. Her initial laboratory studies, from 04/19/2021, included CBC showing hemoglobin 11.8 g, white blood cell count 19,400, and platelet count 43,000. Her comprehensive metabolic profile had shown some decline in renal function with BUN 33 and creatinine 1.3 mg/dL. Her liver enzymes were normal. Her outpatient laboratory studies on 06/05/2021 included CBC showing hemoglobin 11.0 g, white blood cell count 8100, and platelet count 6000. Her serum iron studies showed low transferrin saturation 15% with ferritin 24 ng/mL. Her basic metabolic profile showed improved renal function with BUN 18 and creatinine 1.1 mg/dL. On 06/28/2021 she was admitted to the hospital again after presenting to the emergency room with confusion. At the time she was having a lot of bruising, no active bleeding. Her CBC showed hemoglobin 11.4 g, white blood cell count 6800, and platelet count 4000. Pro time and PTT were normal, and the haptoglobin was normal at 111.0 mg/L. Liver enzymes were slightly elevated. Sed rate was mildly elevated 45 mm/h. Abdominal ultrasound showed mild splenomegaly. She was treated presumptively for autoimmune thrombocytopenia with IVIG 1 g/kg daily for 2 days together with high-dose dexamethasone, 40 mg daily for 4 days. She was discharged home yesterday on prednisone 40 mg daily. At that point her platelet count increased to 38,000. Her hemoglobin, though, had dropped 8.4 g. She is seen now for further management. She has been feeling very tired and she has limited activity. She is able to ambulate with a walker, but she is mostly sedentary. ECOG score is 3. Her appetite has been okay. She has no fever or night sweats. She has not had epistaxis or any oral bleeding. Her breathing is okay at rest, but Eddie says she does get short of breath with activity. She has just occasional cough. She does not complain of chest pain. She has had chronic constipation, but recently she has been having diarrhea. She has not been aware of any blood in the stool. She has no complaints. She has pain in her back and legs, which is chronic. She does not complain of headache or dizziness, and she has no focal neurologic symptoms. Past Medical History: Her medical history consists of Alzheimer's type dementia, degenerative arthritis, degenerative disease of the spine, hyperlipidemia, hypertension, and type II diabetes. She has a history of COVID-19 virus infection in April 2021, and she has a history of nephrolithiasis. Past Surgical History: Her surgical/procedural history includes appendectomy, cataract excisions, cholecystectomy, tonsillectomy, tubal ligation, and colonoscopy in 2004. Medications: Acetaminophen 2 Caplet (of 500 mg) Capsule Oral b.i.d. PRN, B-12 1 Tablet (of 1000 mcg) Capsule Oral daily, Calcium 2 Tablet (of 600 mg) Oral daily, Cholecalciferol 1 Tablet (of 125 mcg ) Oral daily, Gabapentin 1 - 2 Tablet (of 100 mg) Capsule Oral at bedtime, HumaLOG Preston KwikPen (100 Units/mL) Subcutaneous Take as Directed, Insulin Glargine (1 Unit Dial) 20 Unit(s) (of 300 Units/mL) Subcutaneous b.i.d., Januvia 1 Tablet (of 100 mg) Oral daily, Magnesium 1 Tablet (of 250 mg) Oral daily, metFORMIN HCl 1 Tablet (of 1000 mg) Oral b.i.d., Pantoprazole Sodium 1 Tablet (of 40 mg) Tablet, enteric coated Oral b.i.d., predniSONE (10 mg) Tablet Oral Take as Directed, Simvastatin 1 Tablet (of 40 mg) Oral daily, traMADol HCl 1 Tablet (of 50 mg) Oral t.i.d. PRN Allergies: Lipitor, Sulfamethoxazole-Trimethoprim, and Vioxx. Social History: Ms. Osuna is . She is a non-smoker. She does not drink alcohol. Family History: Father age 81. He had prostate cancer, diabetes, dementia. Mother had dementia. She with heart disease age 79. A brother also has and diabetes. Review Of Symptoms: Constitutional - She has been feeling tired and she has very limited activity. She is able to ambulate with a walker. She is mostly sedentary. Appetite has been okay. She is not having fever or night sweats. ECOG score is 3, Eyes - No change in vision, ENMT - She has hearing loss. No tinnitus. She has some sinus congestion/drainage. No mouth sores. No sore throat or difficulty swallowing, Hematologic/Lymphatic - She has a lot of bruising but no other bleeding, Respiratory - She has shortness of breath with activity. She has just occasional cough. No pleuritic pain or hemoptysis, Cardiovascular - No angina pain. No palpitations, Gastrointestinal - No nausea or vomiting. No heartburn or acid reflux. She has chronic constipation but recently she has been having diarrhea. She has not been aware of any blood in the stool or black stools, Genitourinary (F) - No dysuria or hematuria. No urinary frequency. She has nocturia and she does have some incontinence, Musculoskeletal - She has chronic pain in her back and legs, Neurologic - No headache or dizziness. No numbness or tingling. No other focal neurologic symptoms, Psychiatric - She has dementia and she has some anxiety and depression. No insomnia. Vital Signs: Performed on Jul 03, 2021 16:13: 6, 0, 34.70 (HIGH), 2.06 sq.m, 66 in, 99 %, 77 /min, 18 /min, 149/69 mm(hg) (HIGH), 97.8 F (LOW), and 215 lbs (HIGH). Physical Examination: Constitutional - She appears somewhat weak generally, but not acutely ill, Eyes - Sclerae nonicteric. Conjunctivae clear, ENMT - No lesions noted in the oral cavity. In particular, there are no hemorrhages noted, Neck - No mass or thyromegaly, Hematologic/Lymphatic - No cervical, clavicular, or axillary adenopathy, Respiratory - Lungs sound clear with good air movement bilaterally, Cardiovascular - Heart rhythm is irregular. There is no murmur, gallop, or rub noted, Abdomen - Soft and non-tender. Liver and spleen are not enlarged. There is no abdominal mass or ascites noted and there is no inguinal adenopathy, Back/Spine - No spine or CVA tenderness noted, Extremities - No edema. She has multiple ecchymoses including a fairly large area of ecchymosis on the right forearm. There are no petechiae noted, Integumentary - No rashes. No suspicious skin lesions noted, Neurologic - No focal neurologic deficits noted. Lab/Imaging: Her CBC shows hemoglobin back up to 9.7 g with white blood cell count 6000 and platelet count 58,000. Comprehensive metabolic profile shows stable renal function with BUN 32 and creatinine 1.2 mg/dL. Liver enzymes remain mildly elevated with SGOT 87/32 U/L and SGPT 109/33 U/L. LDH is mildly elevated at 225 U/L. Problem List: 1. 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 2. She has moderately severe anemia. This appears to be due to mild iron deficiency anemia at baseline with superimposed acute anemia secondary to the IVIG. 3. History of COVID-19 virus infection in April 2021. 4. Hypertension. 5. Hyperlipidemia. 6. Type 2 diabetes, currently uncontrolled due to steroid therapy. 7. Alzheimer's type dementia. 8. Degenerative arthritis/degenerative disease of the spine. 9. History of nephrolithiasis. Problems Addressed with this Encounter and Plan: 1. 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 She is showing some response to treatment with IVIG in combination with high-dose dexamethasone. For now she will continue prednisone at 40 mg daily. Her blood counts will be monitored weekly and the prednisone will be tapered as she is able to tolerate. I will tentatively plan a follow-up visit in 4 weeks. 2. She has moderately severe anemia. Based on her laboratory studies from May, it appears that she had mild iron deficient anemia at baseline. She then had an acute drop in hemoglobin/hematocrit in the hospital, which I assume is due to the IVIG. This should improve on its own, but in the meantime she will begin oral iron supplementation with ferrous sulfate 325 mg daily. 3. She has type 2 diabetes which is now uncontrolled due to steroid therapy. She has started Lantus 20 units twice daily along with Humalog AC per sliding scale. This will be continued. She will also continue Januvia. She has been off glipizide I also will now have her stop Metformin to make sure that is not contributing to her diarrhea. Her will be reporting her blood sugars and her insulin dosages will be adjusted as necessary. He is to call immediately if she has any tracer readings below 80. Signed By: Lars Miles M.D. <<Signature on File>>
== END 2021-07-03 15:06 | disposition home or self-care (01) ==
LOC: ONCMED 15:13
PROVIDERS: PCP Internal Medicine; Visit Provider Internal Medicine Medical Oncology
DX: D69.3 Immune thrombocytopenic purpura (principal); D50.9 Iron deficiency anemia, unspecified; Z86.16 Personal history of COVID-19; I10 Essential (primary) hypertension; E78.5 Hyperlipidemia, unspecified; E11.9 Type 2 diabetes mellitus without complications; Z79.52 Long term (current) use of systemic steroids; G30.9 Alzheimer's disease, unspecified; F02.80 Dementia in other diseases classified elsewhere, unspecified severity, without behavioral disturbance, psychotic disturbance, mood disturbance, and anxiety; M19.90 Unspecified osteoarthritis, unspecified site; M47.9 Spondylosis, unspecified; N20.0 Calculus of kidney; Z79.899 Other long term (current) drug therapy
CPT/HCPCS: 36415; 80053; 83615; 85025; 99205

== ENCOUNTER 2021-07-17 06:00 | Outpatient (CLI) | payer MEDICARE, BC, SELFPAY | END 2021-07-17 06:01 | disposition home or self-care (01) | LOC: LAB 09-11 15:23 | PROVIDERS: PCP Internal Medicine; Visit Provider Internal Medicine Medical Oncology | DX: D69.6 Thrombocytopenia, unspecified (principal) | CPT/HCPCS: 80053; 85025 ==

== ENCOUNTER 2021-07-24 12:30 | Outpatient (CLI) | payer MEDICARE, BC, SELFPAY ==
[2021-07-10 15:27] LABS: Basophils % 0.2 %; Hematocrit 35.2 % (37.0-47.0); Hemoglobin 10.8 g/dL (11.5-15.3); Lymphocytes # 0.6 10^3/uL (0.8-4.8); Lymphocytes % 10.6 %; Mean Corpuscular HGB Conc 30.7 g/dL (30.0-36.0); Mean Corpuscular Hemoglobin 29.3 pg (28.0-34.0); Mean Corpuscular Volume 95.4 fl (81-99); Monocytes # 0.1 10^3/uL (0.2-0.9); Monocytes % 1.8 %; Neutrophils # 4.85 10^3/uL (1.8-7.7); Neutrophils % 86.9 %; Nucleated Red Blood Cells % 0 %; Platelet Count 42 10^3/cmm (130-400); Red Blood Count 3.69 10^6/uL (4.1-5.3); Red Cell Distribution Width 14.7 % (12.1-15.1); White Blood Count 5.6 10^3/uL (4.0-10.0)
[2021-07-10 15:46] LABS: Blood Urea Nitrogen 25 mg/dL (8-23); Calcium 8.5 mg/dL (8.5-10.5); Carbon Dioxide 26 mmol/L (22-29); Chloride 98 mmol/L (98-107); Glucose 377 mg/dL (65-115); Osmolality Calculated 300 mOsm/kg (285-295); Sodium 135 mmol/L (136-145)
[2021-07-10 15:50] LABS: Anion Gap 15.9 (5-19); Potassium 4.9 mmol/L (3.5-5.1)
[2021-07-17 13:24] LABS: Basophils % 0.2 %; Hematocrit 37.6 % (37.0-47.0); Hemoglobin 11.8 g/dL (11.5-15.3); Lymphocytes % 11.9 %; Mean Corpuscular HGB Conc 31.4 g/dL (30.0-36.0); Mean Corpuscular Hemoglobin 29.4 pg (28.0-34.0); Mean Corpuscular Volume 93.8 fl (81-99); Monocytes # 0.1 10^3/uL (0.2-0.9); Monocytes % 1.6 %; Neutrophils # 7.34 10^3/uL (1.8-7.7); Neutrophils % 85.9 %; Nucleated Red Blood Cells % 0 %; Platelet Count 43 10^3/cmm (130-400); Red Blood Count 4.01 10^6/uL (4.1-5.3); Red Cell Distribution Width 14.5 % (12.1-15.1); White Blood Count 8.6 10^3/uL (4.0-10.0)
[2021-07-17 13:37] LABS: Alanine Aminotransferase 74 U/L (0-33); Albumin Level 3.4 g/dL (3.5-5.2); Alkaline Phosphatase 73 IU/L (35-105); Anion Gap 16.1 (5-19); Aspartate Amino Transferase 44 U/L (0-32); Blood Urea Nitrogen 31 mg/dL (8-23); Calcium 8.8 mg/dL (8.5-10.5); Carbon Dioxide 23 mmol/L (22-29); Chloride 99 mmol/L (98-107); Globulin 3.7 g/dL (1.3-4.6); Glucose 282 mg/dL (65-115); Osmolality Calculated 293 mOsm/kg (285-295); Potassium 5.1 mmol/L (3.5-5.1); Sodium 133 mmol/L (136-145); Total Bilirubin 0.3 mg/dL (0.15-1.2); Total Protein 7.1 g/dL (6.6-8.7)
[2021-07-24 12:41] LABS: Basophils % 0.1 %; Hematocrit 39.5 % (37.0-47.0); Hemoglobin 12.6 g/dL (11.5-15.3); Lymphocytes # 1.1 10^3/uL (0.8-4.8); Lymphocytes % 13.1 %; Mean Corpuscular HGB Conc 31.9 g/dL (30.0-36.0); Mean Corpuscular Hemoglobin 29.6 pg (28.0-34.0); Mean Corpuscular Volume 92.7 fl (81-99); Monocytes # 0.2 10^3/uL (0.2-0.9); Monocytes % 2.4 %; Neutrophils # 7.09 10^3/uL (1.8-7.7); Neutrophils % 83.9 %; Nucleated Red Blood Cells % 0 %; Platelet Count 70 10^3/cmm (130-400); Red Blood Count 4.26 10^6/uL (4.1-5.3); Red Cell Distribution Width 14.4 % (12.1-15.1); White Blood Count 8.5 10^3/uL (4.0-10.0)
[2021-07-24 13:02] LABS: Alanine Aminotransferase 70 U/L (0-33); Albumin Level 3.6 g/dL (3.5-5.2); Alkaline Phosphatase 73 IU/L (35-105); Aspartate Amino Transferase 44 U/L (0-32); Blood Urea Nitrogen 32 mg/dL (8-23); Calcium 9.5 mg/dL (8.5-10.5); Carbon Dioxide 24 mmol/L (22-29); Chloride 98 mmol/L (98-107); Globulin 3.1 g/dL (1.3-4.6); Glucose 256 mg/dL (65-115); Osmolality Calculated 294 mOsm/kg (285-295); Sodium 134 mmol/L (136-145); Total Bilirubin 0.3 mg/dL (0.15-1.2); Total Protein 6.7 g/dL (6.6-8.7)
== END 2021-07-24 12:31 | disposition home or self-care (01) ==
LOC: LAB 12:30
PROVIDERS: Hospitalist; PCP Internal Medicine; Visit Provider Internal Medicine Medical Oncology
DX: D69.6 Thrombocytopenia, unspecified (principal)
CPT/HCPCS: 80048; 80053; 85025

== ENCOUNTER 2021-07-31 08:26 | Outpatient (CLI) | payer MEDICARE, BC, SELFPAY ==
[2021-07-31 09:05] LABS: Basophils % 0.3 %; Hematocrit 40.7 % (37.0-47.0); Hemoglobin 13.1 g/dL (11.5-15.3); Lymphocytes # 5.5 10^3/uL (0.8-4.8); Lymphocytes % 43.8 %; Mean Corpuscular HGB Conc 32.2 g/dL (30.0-36.0); Mean Corpuscular Hemoglobin 29.7 pg (28.0-34.0); Mean Corpuscular Volume 92.3 fl (81-99); Mean Platelet Volume 13.2 fL (7.4-10.4); Monocytes # 0.7 10^3/uL (0.2-0.9); Monocytes % 5.6 %; Neutrophils # 6.27 10^3/uL (1.8-7.7); Nucleated Red Blood Cells % 0 %; Platelet Count 111 10^3/cmm (130-400); Red Blood Count 4.41 10^6/uL (4.1-5.3); Red Cell Distribution Width 14.4 % (12.1-15.1); White Blood Count 12.6 10^3/uL (4.0-10.0)
[2021-07-31 09:56] LABS: Alanine Aminotransferase 54 U/L (0-33); Albumin Level 3.8 g/dL (3.5-5.2); Alkaline Phosphatase 67 IU/L (35-105); Anion Gap 15.3 (5-19); Aspartate Amino Transferase 31 U/L (0-32); Blood Urea Nitrogen 29 mg/dL (8-23); Calcium 8.8 mg/dL (8.5-10.5); Carbon Dioxide 27 mmol/L (22-29); Chloride 100 mmol/L (98-107); Ferritin 43 ng/mL (15-150); Globulin 2.9 g/dL (1.3-4.6); Glucose 127 mg/dL (65-115); Iron 114 ug/dL (37-145); Lactate Dehydrogenase 189 U/L (135-214); Osmolality Calculated 293 mOsm/kg (285-295); Percent Saturation 33.9 % (20-50); Potassium 4.3 mmol/L (3.5-5.1); Sodium 138 mmol/L (136-145); Total Bilirubin 0.2 mg/dL (0.15-1.2); Total Iron Binding Capacity 336 mcg/dl; Total Protein 6.7 g/dL (6.6-8.7); Unsaturated Iron Binding 222 ug/dL (112-347)
--- NOTE | 2021-08-02 13:00 | ONC FU_ITS ---
Dr. Miles Patient Follow-Up Note Patient: Eugenia Osuna Unit #: [id number]: 1945 Dicatated By: Lars Miles M.D.Date of Visit:Jul 31, 2021 Onc Med Follow-up/Prog Note Chief Complaint: Thrombocytopenia. 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 On 04/20/2021 she was admitted to the hospital after presenting to the emergency room with cough and fever. Her rapid Covid test was negative, but a subsequent PCR did come back positive for COVID-19 virus infection. In the meantime, she had been discharged on empiric oral antibiotic therapy with doxycycline. Her initial laboratory studies, from 04/19/2021, included CBC showing hemoglobin 11.8 g, white blood cell count 19,400, and platelet count 43,000. Her comprehensive metabolic profile had shown some decline in renal function with BUN 33 and creatinine 1.3 mg/dL. Her liver enzymes were normal. Her outpatient laboratory studies on 06/05/2021 included CBC showing hemoglobin 11.0 g, white blood cell count 8100, and platelet count 6000. Her serum iron studies showed low transferrin saturation 15% with ferritin 24 ng/mL. Her basic metabolic profile showed improved renal function with BUN 18 and creatinine 1.1 mg/dL. On 06/28/2021 she was admitted to the hospital again after presenting to the emergency room with confusion. At the time she was having a lot of bruising, no active bleeding. Her CBC showed hemoglobin 11.4 g, white blood cell count 6800, and platelet count 4000. Pro time and PTT were normal, and the haptoglobin was normal at 111.0 mg/L. Liver enzymes were slightly elevated. Sed rate was mildly elevated 45 mm/h. Abdominal ultrasound showed mild splenomegaly. She was treated presumptively for autoimmune thrombocytopenia with IVIG 1 g/kg daily for 2 days together with high-dose dexamethasone, 40 mg daily for 4 days. She was discharged home on prednisone 40 mg daily. At that point her platelet count increased to 38,000. Her hemoglobin, though, had dropped 8.4 g. I had seen her initially on 07/03/2021. At that point her hemoglobin was back up to 9.7 g and her platelet count had increased to 58,000. She continued prednisone 40 mg daily. Her other medical illnesses include hypertension, hyperlipidemia, and type 2 diabetes, and degenerative arthritis. She has Alzheimer's type dementia, which had been worsening gradually. She has a history of nephrolithiasis. She is a non-smoker. She is seen for a follow-up visit. She says she has been feeling good. The main problem is that her blood sugars have been all over the place, sometimes in the 400-500 range but it other times a have dropped below 100. She has been on Levemir at 15 units daily along with regular insulin taken before meals per sliding scale. Her energy comes and goes. She has limited activity, mainly due to chronic back pain. ECOG score is 2. She has good appetite. She does not have fever or night sweats. She occasionally has sore throat. She does not complain of cough and she has not been having shortness of breath or chest pain. She has had mild constipation. Bowel function generally has been adequate with MiraLAX. She has no complaints. She also has arthritis pain in her knees. Her pain is managed with Tylenol and tramadol. She reports having headache quite often. She sometimes has dizziness. She has no numbness/paresthesia or other focal neurologic symptoms. She has easy bruising, no other bleeding manifestations. Medications: Acetaminophen 2 Caplet (of 500 mg) Capsule Oral b.i.d. PRN, B-12 1 Tablet (of 1000 mcg) Capsule Oral daily, Calcium 2 Tablet (of 600 mg) Oral daily, Cholecalciferol 1 Tablet (of 125 mcg ) Oral daily, Gabapentin 1 - 2 Tablet (of 100 mg) Capsule Oral at bedtime, HumaLOG Preston KwikPen (100 Units/mL) Subcutaneous Take as Directed, Insulin Glargine (1 Unit Dial) 30 Unit(s) (of 300 Units/mL) Subcutaneous b.i.d., Januvia 1 Tablet (of 100 mg) Oral daily, Magnesium 1 Tablet (of 250 mg) Oral daily, metFORMIN HCl 1 Tablet (of 1000 mg) Oral b.i.d., Pantoprazole Sodium 1 Tablet (of 40 mg) Tablet, enteric coated Oral b.i.d., predniSONE (10 mg) Tablet Oral Take as Directed, Sertraline HCl 1 Tablet (of 25 mg) Oral daily, Simvastatin 1 Tablet (of 40 mg) Oral daily, traMADol HCl 1 Tablet (of 50 mg) Oral t.i.d. PRN Allergies: Lipitor, Sulfamethoxazole-Trimethoprim, and Vioxx . Vital Signs: Performed on Jul 31, 2021 12:46 Height - 66.00 in Weight - 201.8 lbs (LOW) BSA - 2.01 sq.m BMI - 32.57 (HIGH) Temperature - 97.4 F (LOW) Pulse - 82 /min Respiration - 16 /min BP - 134/75 mm(hg) O2 Sat - 96 % Pain - 0 Fatigue - 5 Physical Examination: Constitutional - She does not appear acutely ill, Eyes - Sclerae nonicteric. Conjunctivae clear, ENMT - No lesions noted in the oral cavity. In particular, there are no hemorrhages noted, Hematologic/Lymphatic - No cervical, clavicular, or axillary adenopathy, Respiratory - Lungs sound clear with good air movement bilaterally, Cardiovascular - Heart rhythm is irregular. There is no murmur, gallop, or rub noted, Abdomen - Soft. Liver and spleen are not enlarged. There is no abdominal mass or ascites noted and there is no inguinal adenopathy, Extremities - No edema. There are purpuric lesions on both arms, Neurologic - No focal neurologic deficits noted. Lab/Imaging: Test performed on Jul 31, 2021 08:50 Ferritin 43 ng/mL Iron 114 mcg/dL LDH (Total) 189 U/L Sodium 138 mmol/L Iron Binding Capacity (TIBC) 336 mcg/dl Potassium 4.3 mmol/L % Iron Saturation 33.9 % Chloride 100 mmol/L CO2 27 mmol/L UIBC 222 mcg/dL Anion Gap 15.3 BUN 29 mg/dL Creatinine 1.5 mg/dL Cr Clearance (Est) 46.11 mL/min Glucose 127 mg/dL Osmolality - Calculated 293 mOsm/kg Calcium 8.8 mg/dL Protein, Total 6.7 g/dL Albumin 3.8 g/dL Globulin 2.9 g/dL Bilirubin, Total 0.2 mg/dL ALT (SGPT) 54 U/L AST (SGOT) 31 U/L Alkaline Phosphatase 67 IU/L WBC 12.6 10 3/uL RBC 4.41 10 6/uL HGB 13.1 g/dL HCT 40.7 % MCV 92.3 fl MCH 29.7 pg MCHC 32.2 g/dL RDW 14.4 % Platelet Count 111 10 3/cmm MPV 13.2 fL Neutrophils 6.27 10 3/uL Lymphocytes 5.5 10 3/uL Monocytes 0.7 10 3/uL Eosinophils 0.0 10 3/uL Basophils 0.0 10 3/uL Neutrophil % 50.0 % Lymphocyte % 43.8 % Monocyte % 5.6 % Eosinophil % 0.0 % Basophils % 0.3 % NRBC % 0 % Problem List: 1. 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 2. She has moderately severe anemia. This appears to be due to mild iron deficiency anemia at baseline with superimposed acute anemia secondary to the IVIG. 3. History of COVID-19 virus infection in April 2021. 4. Hypertension. 5. Hyperlipidemia. 6. Type 2 diabetes, currently uncontrolled due to steroid therapy. 7. Alzheimer's type dementia. 8. Degenerative arthritis/degenerative disease of the spine. 9. History of nephrolithiasis. Problems Addressed with this Encounter and Plan: 1. 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 She had shown some response to initial treatment with IVIG in combination with high-dose dexamethasone. She then continued steroid therapy with prednisone at 40 mg daily. She has been showing further response, with her current platelet count just mildly decreased. She will now decrease prednisone to 20 mg daily. I will continue to monitor blood counts weekly and I will continue tapering the prednisone as indicated. She will be scheduled for a follow-up visit in 1 month. 2. She also had moderately severe anemia. Based on her laboratory studies from May, it appeared that she had mild iron deficient anemia at baseline. She then had an acute drop in hemoglobin/hematocrit in the hospital, which I had assumed was due to the IVIG. Her anemia has corrected on oral iron supplementation with ferrous sulfate 325 mg daily. 3. She has type 2 diabetes which is now uncontrolled due to steroid therapy. Management has been problematic due to wide fluctuations in her blood sugars. Hopefully it will improve as the prednisone dosage is tapered. Signed By: Lars Miles M.D. <<Signature on File>>
== END 2021-07-31 08:27 | disposition home or self-care (01) ==
PROVIDERS: PCP Internal Medicine; Visit Provider Internal Medicine Medical Oncology
DX: D69.3 Immune thrombocytopenic purpura (principal); D50.9 Iron deficiency anemia, unspecified; I10 Essential (primary) hypertension; E78.5 Hyperlipidemia, unspecified; E11.9 Type 2 diabetes mellitus without complications; Z79.52 Long term (current) use of systemic steroids; G30.9 Alzheimer's disease, unspecified; F02.80 Dementia in other diseases classified elsewhere, unspecified severity, without behavioral disturbance, psychotic disturbance, mood disturbance, and anxiety; M47.9 Spondylosis, unspecified; Z87.442 Personal history of urinary calculi; Z86.16 Personal history of COVID-19; Z79.899 Other long term (current) drug therapy
CPT/HCPCS: 36415; 80053; 82728; 83540; 83550; 83615; 85025; 99214

== ENCOUNTER 2021-08-07 07:39 | Outpatient (CLI) | payer MEDICARE, BC, SELFPAY ==
[2021-08-07 09:11] LABS: Basophils % 0.1 %; Hematocrit 41.2 % (37.0-47.0); Hemoglobin 13.4 g/dL (11.5-15.3); Lymphocytes % 34.7 %; Mean Corpuscular HGB Conc 32.5 g/dL (30.0-36.0); Mean Corpuscular Volume 92.2 fl (81-99); Mean Platelet Volume 13.9 fL (7.4-10.4); Monocytes # 0.8 10^3/uL (0.2-0.9); Neutrophils # 6.72 10^3/uL (1.8-7.7); Neutrophils % 57.8 %; Nucleated Red Blood Cells % 0 %; Platelet Count 110 10^3/cmm (130-400); Red Blood Count 4.47 10^6/uL (4.1-5.3); Red Cell Distribution Width 14.2 % (12.1-15.1); White Blood Count 11.6 10^3/uL (4.0-10.0)
[2021-08-07 09:21] LABS: Alanine Aminotransferase 47 U/L (0-33); Albumin Level 3.7 g/dL (3.5-5.2); Alkaline Phosphatase 68 IU/L (35-105); Anion Gap 14.1 (5-19); Aspartate Amino Transferase 31 U/L (0-32); Blood Urea Nitrogen 34 mg/dL (8-23); Calcium 8.9 mg/dL (8.5-10.5); Carbon Dioxide 28 mmol/L (22-29); Chloride 103 mmol/L (98-107); Globulin 2.9 g/dL (1.3-4.6); Glucose 148 mg/dL (65-115); Osmolality Calculated 302 mOsm/kg (285-295); Potassium 4.1 mmol/L (3.5-5.1); Sodium 141 mmol/L (136-145); Total Bilirubin 0.2 mg/dL (0.15-1.2); Total Protein 6.6 g/dL (6.6-8.7)
== END 2021-08-07 07:40 | disposition home or self-care (01) ==
LOC: ONCMED 07:42
PROVIDERS: PCP Internal Medicine; Visit Provider Internal Medicine Medical Oncology
DX: D69.3 Immune thrombocytopenic purpura (principal)
CPT/HCPCS: 36415; 80053; 85025

== ENCOUNTER 2021-08-14 12:45 | Outpatient (CLI) | payer MEDICARE, BC, SELFPAY ==
[2021-08-14 13:36] LABS: Alanine Aminotransferase 25 U/L (0-33); Albumin Level 3.5 g/dL (3.5-5.2); Alkaline Phosphatase 52 IU/L (35-105); Blood Urea Nitrogen 37 mg/dL (8-23); Calcium 8.9 mg/dL (8.5-10.5); Carbon Dioxide 20 mmol/L (22-29); Chloride 104 mmol/L (98-107); Globulin 2.7 g/dL (1.3-4.6); Glucose 112 mg/dL (65-115); Osmolality Calculated 295 mOsm/kg (285-295); Sodium 138 mmol/L (136-145); Total Bilirubin 0.2 mg/dL (0.15-1.2); Total Protein 6.2 g/dL (6.6-8.7)
[2021-08-14 13:39] LABS: Anion Gap 18.7 (5-19); Aspartate Amino Transferase 25 U/L (0-32); Potassium 4.7 mmol/L (3.5-5.1)
[2021-08-14 15:50] LABS: Basophils % 0.3 %; Hemoglobin 12.7 g/dL (11.5-15.3); Lymphocytes # 1.7 10^3/uL (0.8-4.8); Lymphocytes % 16.9 %; Mean Corpuscular HGB Conc 31.8 g/dL (30.0-36.0); Mean Corpuscular Hemoglobin 29.7 pg (28.0-34.0); Mean Corpuscular Volume 93.5 fl (81-99); Mean Platelet Volume 14.2 fL (7.4-10.4); Monocytes # 0.5 10^3/uL (0.2-0.9); Monocytes % 5.2 %; Neutrophils # 7.76 10^3/uL (1.8-7.7); Neutrophils % 77.1 %; Nucleated Red Blood Cells % 0 %; Platelet Count 87 10^3/cmm (130-400); Red Blood Count 4.28 10^6/uL (4.1-5.3); Red Cell Distribution Width 14.4 % (12.1-15.1); White Blood Count 10.1 10^3/uL (4.0-10.0)
== END 2021-08-14 12:46 | disposition home or self-care (01) ==
LOC: LAB 12:46
PROVIDERS: PCP Internal Medicine; Visit Provider Internal Medicine Medical Oncology
DX: D69.6 Thrombocytopenia, unspecified (principal)
CPT/HCPCS: 80053; 85025

== ENCOUNTER 2021-08-21 16:18 | Outpatient (CLI) | payer MEDICARE, BC, SELFPAY ==
[2021-08-21 17:01] LABS: Basophils % 0.2 %; Hematocrit 41.3 % (37.0-47.0); Lymphocytes % 11.1 %; Mean Corpuscular HGB Conc 31.5 g/dL (30.0-36.0); Mean Corpuscular Hemoglobin 29.6 pg (28.0-34.0); Mean Corpuscular Volume 94.1 fl (81-99); Mean Platelet Volume 13.6 fL (7.4-10.4); Monocytes # 0.6 10^3/uL (0.2-0.9); Monocytes % 6.5 %; Neutrophils % 81.9 %; Nucleated Red Blood Cells % 0 %; Platelet Count 85 10^3/cmm (130-400); Red Blood Count 4.39 10^6/uL (4.1-5.3); Red Cell Distribution Width 14.6 % (12.1-15.1); White Blood Count 9.4 10^3/uL (4.0-10.0)
[2021-08-21 17:22] LABS: Alanine Aminotransferase 36 U/L (0-33); Albumin Level 3.6 g/dL (3.5-5.2); Alkaline Phosphatase 60 IU/L (35-105); Anion Gap 14.3 (5-19); Aspartate Amino Transferase 28 U/L (0-32); Blood Urea Nitrogen 37 mg/dL (8-23); Calcium 8.7 mg/dL (8.5-10.5); Carbon Dioxide 24 mmol/L (22-29); Chloride 101 mmol/L (98-107); Globulin 2.6 g/dL (1.3-4.6); Glucose 252 mg/dL (65-115); Osmolality Calculated 295 mOsm/kg (285-295); Potassium 5.3 mmol/L (3.5-5.1); Sodium 134 mmol/L (136-145); Total Bilirubin 0.2 mg/dL (0.15-1.2); Total Protein 6.2 g/dL (6.6-8.7)
== END 2021-08-21 16:19 | disposition home or self-care (01) ==
LOC: LAB 16:19
PROVIDERS: PCP Internal Medicine; Visit Provider Internal Medicine Medical Oncology
DX: D69.6 Thrombocytopenia, unspecified (principal)
CPT/HCPCS: 80053; 85025

== ENCOUNTER 2021-08-28 09:23 | Outpatient (CLI) | payer MEDICARE, BC, SELFPAY ==
[2021-08-28 09:45] LABS: Basophils # 0.1 10^3/uL (0.0-0.1); Basophils % 0.5 %; Hematocrit 42.7 % (37.0-47.0); Hemoglobin 13.5 g/dL (11.5-15.3); Lymphocytes # 2.6 10^3/uL (0.8-4.8); Lymphocytes % 23.5 %; Mean Corpuscular HGB Conc 31.6 g/dL (30.0-36.0); Mean Corpuscular Hemoglobin 29.6 pg (28.0-34.0); Mean Corpuscular Volume 93.6 fl (81-99); Mean Platelet Volume 12.4 fL (7.4-10.4); Neutrophils # 7.28 10^3/uL (1.8-7.7); Neutrophils % 66.6 %; Nucleated Red Blood Cells % 0 %; Platelet Count 106 10^3/cmm (130-400); Red Blood Count 4.56 10^6/uL (4.1-5.3); White Blood Count 10.9 10^3/uL (4.0-10.0)
[2021-08-28 10:05] LABS: Alanine Aminotransferase 46 U/L (0-33); Albumin Level 3.9 g/dL (3.5-5.2); Alkaline Phosphatase 70 IU/L (35-105); Anion Gap 18.3 (5-19); Aspartate Amino Transferase 32 U/L (0-32); Blood Urea Nitrogen 33 mg/dL (8-23); Calcium 9.2 mg/dL (8.5-10.5); Carbon Dioxide 23 mmol/L (22-29); Chloride 104 mmol/L (98-107); Globulin 2.9 g/dL (1.3-4.6); Glucose 64 mg/dL (65-115); Osmolality Calculated 297 mOsm/kg (285-295); Potassium 4.3 mmol/L (3.5-5.1); Sodium 141 mmol/L (136-145); Total Bilirubin 0.2 mg/dL (0.15-1.2); Total Protein 6.8 g/dL (6.6-8.7)
== END 2021-08-28 09:24 | disposition home or self-care (01) ==
LOC: ONCMED 09:26
PROVIDERS: PCP Internal Medicine; Visit Provider Internal Medicine Medical Oncology
DX: D69.6 Thrombocytopenia, unspecified (principal)
CPT/HCPCS: 36415; 80053; 85025

== ENCOUNTER 2021-08-30 06:11 | Outpatient (CLI) | payer MEDICARE, BC, SELFPAY ==
--- NOTE | 2021-08-30 18:39 | ONC FU_ITS ---
Dr. Miles Patient Follow-Up Note Patient: Eugenia Osuna Unit #: [id number]: 1945 Dicatated By: Lars Miles M.D.Date of Visit:Aug 30, 2021 Onc Med Follow-up/Prog Note Chief Complaint: Thrombocytopenia. 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 On 04/20/2021 she was admitted to the hospital after presenting to the emergency room with cough and fever. Her rapid Covid test was negative, but a subsequent PCR did come back positive for COVID-19 virus infection. In the meantime, she had been discharged on empiric oral antibiotic therapy with doxycycline. Her initial laboratory studies, from 04/19/2021, included CBC showing hemoglobin 11.8 g, white blood cell count 19,400, and platelet count 43,000. Her comprehensive metabolic profile had shown some decline in renal function with BUN 33 and creatinine 1.3 mg/dL. Her liver enzymes were normal. Her outpatient laboratory studies on 06/05/2021 included CBC showing hemoglobin 11.0 g, white blood cell count 8100, and platelet count 6000. Her serum iron studies showed low transferrin saturation 15% with ferritin 24 ng/mL. Her basic metabolic profile showed improved renal function with BUN 18 and creatinine 1.1 mg/dL. On 06/28/2021 she was admitted to the hospital again after presenting to the emergency room with confusion. At the time she was having a lot of bruising, no active bleeding. Her CBC showed hemoglobin 11.4 g, white blood cell count 6800, and platelet count 4000. Pro time and PTT were normal, and the haptoglobin was normal at 111.0 mg/L. Liver enzymes were slightly elevated. Sed rate was mildly elevated 45 mm/h. Abdominal ultrasound showed mild splenomegaly. She was treated presumptively for autoimmune thrombocytopenia with IVIG 1 g/kg daily for 2 days together with high-dose dexamethasone, 40 mg daily for 4 days. She was discharged home on prednisone 40 mg daily. At that point her platelet count increased to 38,000. Her hemoglobin, though, had dropped 8.4 g. I had seen her initially on 07/03/2021. At that point her hemoglobin was back up to 9.7 g and her platelet count had increased to 58,000. She continued prednisone 40 mg daily. During subsequent follow-up her platelet count had increased to over 100,000. As of her follow-up visit on 07/31/2021 the prednisone dosage was tapered to 20 mg daily. Her repeat CBC on 08/14/2021 showed just a slight decrease in the platelet count 87,000, and at that point the dosage was further tapered to 10 mg daily. Her other medical illnesses include hypertension, hyperlipidemia, and type 2 diabetes, and degenerative arthritis. She has Alzheimer's type dementia, which had been worsening gradually. She has a history of nephrolithiasis. She is a non-smoker. She is seen for a follow-up visit. Her blood sugar control has been much better with her prednisone dosage down to 10 mg daily. Her energy is the same. She has limited activity. ECOG score is 2. Her appetite has been way up. She does not have fever or night sweats. She has not had sore mouth or throat. She has occasional cough in the morning. She does not complain of shortness of breath or chest pain. She has no GI or complaints. She does have some pain in her knees and in her lower back. She sometimes has headache. She is sometimes lightheaded when she first gets up. She has no numbness/paresthesia or other focal neurologic symptoms. She is still having some bruising. Her thinks her dementia is getting worse. Medications: Acetaminophen 2 Caplet (of 500 mg) Capsule Oral b.i.d. PRN, B-12 1 Tablet (of 1000 mcg) Capsule Oral daily, Calcium 2 Tablet (of 600 mg) Oral daily, Cholecalciferol 1 Tablet (of 125 mcg ) Oral daily, [facility] Iron 1 Tablet (of 325 (65 fe) mg) Oral daily, Gabapentin 1 - 2 Tablet (of 100 mg) Capsule Oral at bedtime, HumaLOG Preston KwikPen (100 Units/mL) Subcutaneous Take as Directed, Insulin Glargine (1 Unit Dial) 30 Unit(s) (of 300 Units/mL) Subcutaneous b.i.d., Januvia 1 Tablet (of 100 mg) Oral daily, Lisinopril-hydroCHLOROthiazide 1 Tablet (of 20-25 mg) Oral daily, Magnesium 1 Tablet (of 250 mg) Oral daily, metFORMIN HCl 1 Tablet (of 1000 mg) Oral b.i.d., Pantoprazole Sodium 1 Tablet (of 40 mg) Tablet, enteric coated Oral b.i.d., predniSONE (10 mg) Tablet Oral Take as Directed, Sertraline HCl 1 Tablet (of 25 mg) Oral daily, Simvastatin 1 Tablet (of 40 mg) Oral daily, traMADol HCl 1 Tablet (of 50 mg) Oral t.i.d. PRN Allergies: Lipitor, Sulfamethoxazole-Trimethoprim, and Vioxx. Vital Signs: Performed on Aug 30, 2021 11:45 Height - 66.00 in Weight - 208.0 lbs (HIGH) BSA - 2.03 sq.m BMI - 33.57 (HIGH) Temperature - 98.1 F (LOW) Pulse - 108 /min (HIGH) Respiration - 16 /min BP - 170/76 mm(hg) (HIGH) O2 Sat - 97 % Pain - 4 Fatigue - 6 Physical Examination: Constitutional - She looks pretty good generally, Eyes - Sclerae nonicteric. Conjunctivae clear, ENMT - No lesions noted in the oral cavity, Hematologic/Lymphatic - No cervical, clavicular, or axillary adenopathy, Respiratory - Lungs sound clear with good air movement bilaterally, Cardiovascular - Heart rhythm appears regular. There is no murmur, gallop, or rub noted, Abdomen - Soft. Liver and spleen are not enlarged. There is no abdominal mass or ascites noted and there is no inguinal adenopathy, Extremities - No edema. Pedal pulses are palpable bilaterally. There are a few purpuric lesions on both arms. There are no petechiae noted, Neurologic - No focal neurologic deficits noted. Lab/Imaging: CBC shows hemoglobin 13.5 g, white blood cell count 10,900, and platelet count 106,000. Comprehensive metabolic profile shows stable renal function with BUN 33 and creatinine 1.4 mg/dL. SGOT is slightly elevated at 46/33 U/L. The bilirubin and the other liver enzymes are normal. Problem List: 1. 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 2. She has moderately severe anemia. This appears to be due to mild iron deficiency anemia at baseline with superimposed acute anemia secondary to the IVIG. 3. History of COVID-19 virus infection in April 2021. 4. Hypertension. 5. Hyperlipidemia. 6. Type 2 diabetes, currently uncontrolled due to steroid therapy. 7. Alzheimer's type dementia. 8. Degenerative arthritis/degenerative disease of the spine. 9. History of nephrolithiasis. Problems Addressed with this Encounter and Plan: 1. 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 She had shown some response to initial treatment with IVIG in combination with high-dose dexamethasone. She then continued steroid therapy with prednisone at 40 mg daily. She did have a significant response with platelet count increasing to over 100,000. Since then she has been able to taper the prednisone down to 10 mg daily. Thus far platelet count remains adequate at 106,000. For now she will continue prednisone 10 mg daily. Blood counts will be checked every 2 weeks. I will tentatively plan a follow-up visit in 3 months. 2. She also had moderately severe anemia. Based on her laboratory studies from May, it appeared that she had mild iron deficient anemia at baseline. She then had an acute drop in hemoglobin/hematocrit in the hospital, which I had assumed was due to the IVIG. During follow-up her anemia corrected on oral iron supplementation with ferrous sulfate 325 mg daily. 3. She has type 2 diabetes which became uncontrolled on the higher dose steroid therapy. It is being managed by Dr. Chavez. With the prednisone dosage down to 10 mg daily, her blood sugars are much better now. Signed By: Lars Miles M.D. <<Signature on File>>
== END 2021-08-30 06:12 | disposition home or self-care (01) ==
LOC: ONCMED 06:11
PROVIDERS: PCP Internal Medicine; Visit Provider Internal Medicine Medical Oncology
DX: D75.839 Thrombocytosis, unspecified (principal); D64.9 Anemia, unspecified; I10 Essential (primary) hypertension; Z86.16 Personal history of COVID-19; E78.5 Hyperlipidemia, unspecified; E09.65 Drug or chemical induced diabetes mellitus with hyperglycemia; T38.0X5A Adverse effect of glucocorticoids and synthetic analogues, initial encounter; G30.9 Alzheimer's disease, unspecified; M47.819 Spondylosis without myelopathy or radiculopathy, site unspecified; Z87.442 Personal history of urinary calculi
CPT/HCPCS: 99214

== ENCOUNTER 2021-09-11 14:00 | Outpatient (CLI) | payer MEDICARE, BC, SELFPAY ==
[2021-09-11 14:48] LABS: Basophils % 0.4 %; Hematocrit 43.9 % (37.0-47.0); Lymphocytes # 1.5 10^3/uL (0.8-4.8); Lymphocytes % 13.6 %; Mean Corpuscular HGB Conc 31.9 g/dL (30.0-36.0); Mean Corpuscular Hemoglobin 29.7 pg (28.0-34.0); Mean Corpuscular Volume 93.2 fl (81-99); Mean Platelet Volume 12.8 fL (7.4-10.4); Monocytes # 0.7 10^3/uL (0.2-0.9); Neutrophils # 8.96 10^3/uL (1.8-7.7); Neutrophils % 79.5 %; Nucleated Red Blood Cells % 0 %; Platelet Count 131 10^3/cmm (130-400); Red Blood Count 4.71 10^6/uL (4.1-5.3); Red Cell Distribution Width 15.4 % (12.1-15.1); White Blood Count 11.3 10^3/uL (4.0-10.0)
[2021-09-11 15:09] LABS: Alanine Aminotransferase 32 U/L (0-33); Alkaline Phosphatase 65 IU/L (35-105); Anion Gap 17.6 (5-19); Aspartate Amino Transferase 26 U/L (0-32); Blood Urea Nitrogen 29 mg/dL (8-23); Calcium 9.1 mg/dL (8.5-10.5); Carbon Dioxide 24 mmol/L (22-29); Chloride 106 mmol/L (98-107); Globulin 2.7 g/dL (1.3-4.6); Glucose 124 mg/dL (65-115); Osmolality Calculated 301 mOsm/kg (285-295); Potassium 5.6 mmol/L (3.5-5.1); Sodium 142 mmol/L (136-145); Total Bilirubin 0.3 mg/dL (0.15-1.2); Total Protein 6.7 g/dL (6.6-8.7)
== END 2021-09-11 14:01 | disposition home or self-care (01) ==
LOC: ONCMED 14:05
PROVIDERS: PCP Internal Medicine; Visit Provider Internal Medicine Medical Oncology
DX: D69.6 Thrombocytopenia, unspecified (principal)
CPT/HCPCS: 36415; 80053; 85025

== ENCOUNTER 2021-09-25 13:58 | Outpatient (CLI) | payer MEDICARE, BC, SELFPAY ==
[2021-09-25 15:24] LABS: Alanine Aminotransferase 26 U/L (0-33); Albumin Level 3.9 g/dL (3.5-5.2); Alkaline Phosphatase 63 IU/L (35-105); Anion Gap 19.7 (5-19); Aspartate Amino Transferase 23 U/L (0-32); Blood Urea Nitrogen 33 mg/dL (8-23); Calcium 9.3 mg/dL (8.5-10.5); Carbon Dioxide 19 mmol/L (22-29); Chloride 107 mmol/L (98-107); Globulin 2.4 g/dL (1.3-4.6); Glucose 121 mg/dL (65-115); Osmolality Calculated 301 mOsm/kg (285-295); Potassium 4.7 mmol/L (3.5-5.1); Sodium 141 mmol/L (136-145); Total Bilirubin 0.3 mg/dL (0.15-1.2); Total Protein 6.3 g/dL (6.6-8.7)
[2021-09-25 16:37] LABS: Basophils % 0.2 %; Hematocrit 43.1 % (37.0-47.0); Hemoglobin 13.7 g/dL (11.5-15.3); Lymphocytes # 1.6 10^3/uL (0.8-4.8); Lymphocytes % 13.3 %; Mean Corpuscular HGB Conc 31.8 g/dL (30.0-36.0); Mean Corpuscular Hemoglobin 29.5 pg (28.0-34.0); Mean Corpuscular Volume 92.7 fl (81-99); Mean Platelet Volume 13.9 fL (7.4-10.4); Monocytes # 0.6 10^3/uL (0.2-0.9); Monocytes % 5.2 %; Neutrophils # 9.73 10^3/uL (1.8-7.7); Neutrophils % 81.1 %; Nucleated Red Blood Cells % 0 %; Platelet Count 129 10^3/cmm (130-400); Red Blood Count 4.65 10^6/uL (4.1-5.3); Red Cell Distribution Width 15.9 % (12.1-15.1)
[2021-09-25 17:33] LABS: Slide Review Slide Review Perform
== END 2021-09-25 13:59 | disposition home or self-care (01) ==
LOC: ONCMED 14:02
PROVIDERS: PCP Internal Medicine; Visit Provider Internal Medicine Medical Oncology
DX: D69.6 Thrombocytopenia, unspecified (principal)
CPT/HCPCS: 36415; 80053; 85025

== ENCOUNTER 2021-10-09 13:57 | Outpatient (CLI) | payer MEDICARE, BC, SELFPAY ==
[2021-10-09 14:18] LABS: Basophils % 0.2 %; Hematocrit 40.5 % (37.0-47.0); Lymphocytes # 1.3 10^3/uL (0.8-4.8); Lymphocytes % 12.3 %; Mean Corpuscular HGB Conc 32.1 g/dL (30.0-36.0); Mean Corpuscular Hemoglobin 30.5 pg (28.0-34.0); Mean Corpuscular Volume 95.1 fl (81-99); Monocytes # 0.5 10^3/uL (0.2-0.9); Monocytes % 4.8 %; Neutrophils # 8.49 10^3/uL (1.8-7.7); Neutrophils % 82.2 %; Nucleated Red Blood Cells % 0 %; Platelet Count 109 10^3/cmm (130-400); Red Blood Count 4.26 10^6/uL (4.1-5.3); Red Cell Distribution Width 15.7 % (12.1-15.1); White Blood Count 10.3 10^3/uL (4.0-10.0)
== END 2021-10-09 13:58 | disposition home or self-care (01) ==
PROVIDERS: PCP Internal Medicine; Visit Provider Internal Medicine Medical Oncology
DX: D69.6 Thrombocytopenia, unspecified (principal)
CPT/HCPCS: 36415; 85025

== ENCOUNTER 2021-10-23 13:50 | Outpatient (CLI) | payer MEDICARE, BC, MEDICAID, SELFPAY ==
[2021-10-23 14:26] LABS: Basophils % 0.2 %; Hematocrit 40.9 % (37.0-47.0); Hemoglobin 12.9 g/dL (11.5-15.3); Lymphocytes # 1.1 10^3/uL (0.8-4.8); Lymphocytes % 11.9 %; Mean Corpuscular HGB Conc 31.5 g/dL (30.0-36.0); Mean Corpuscular Hemoglobin 30.7 pg (28.0-34.0); Mean Corpuscular Volume 97.4 fl (81-99); Mean Platelet Volume 13.1 fL (7.4-10.4); Monocytes # 0.5 10^3/uL (0.2-0.9); Monocytes % 5.4 %; Neutrophils # 7.59 10^3/uL (1.8-7.7); Neutrophils % 82.2 %; Nucleated Red Blood Cells % 0 %; Platelet Count 103 10^3/cmm (130-400); Red Cell Distribution Width 15.3 % (12.1-15.1); White Blood Count 9.2 10^3/uL (4.0-10.0)
[2021-10-23 14:55] LABS: Slide Review Slide Review Perform
[2021-10-23 15:05] LABS: Alanine Aminotransferase 43 U/L (0-33); Albumin Level 3.8 g/dL (3.5-5.2); Alkaline Phosphatase 75 IU/L (35-105); Anion Gap 17.8 (5-19); Aspartate Amino Transferase 36 U/L (0-32); Blood Urea Nitrogen 32 mg/dL (8-23); Calcium 8.4 mg/dL (8.5-10.5); Carbon Dioxide 19 mmol/L (22-29); Chloride 106 mmol/L (98-107); Globulin 2.3 g/dL (1.3-4.6); Glucose 225 mg/dL (65-115); Osmolality Calculated 300 mOsm/kg (285-295); Potassium 4.8 mmol/L (3.5-5.1); Sodium 138 mmol/L (136-145); Total Bilirubin 0.2 mg/dL (0.15-1.2); Total Protein 6.1 g/dL (6.6-8.7)
== END 2021-10-23 13:51 | disposition home or self-care (01) ==
PROVIDERS: PCP Internal Medicine; Visit Provider Internal Medicine Medical Oncology
DX: D69.6 Thrombocytopenia, unspecified (principal)
CPT/HCPCS: 36415; 80053; 85025

== ENCOUNTER 2021-11-06 13:44 | Outpatient (CLI) | payer MEDICARE, BC, MEDICAID, SELFPAY ==
[2021-11-06 14:38] LABS: Basophils % 0.2 %; Hematocrit 40.6 % (37.0-47.0); Hemoglobin 13.1 g/dL (11.5-15.3); Lymphocytes # 1.6 10^3/uL (0.8-4.8); Lymphocytes % 16.9 %; Mean Corpuscular HGB Conc 32.3 g/dL (30.0-36.0); Mean Platelet Volume 12.7 fL (7.4-10.4); Monocytes # 0.7 10^3/uL (0.2-0.9); Monocytes % 7.6 %; Neutrophils # 7.23 10^3/uL (1.8-7.7); Nucleated Red Blood Cells % 0 %; Platelet Count 110 10^3/cmm (130-400); Red Cell Distribution Width 14.7 % (12.1-15.1); White Blood Count 9.6 10^3/uL (4.0-10.0)
== END 2021-11-06 13:45 | disposition home or self-care (01) ==
LOC: ONCMED 13:54
PROVIDERS: Internal Medicine Medical Oncology; PCP Internal Medicine; Visit Provider Internal Medicine Hematology & Oncology
DX: D69.6 Thrombocytopenia, unspecified (principal)
CPT/HCPCS: 36415; 85025

== ENCOUNTER 2021-11-23 13:47 | Outpatient (CLI) | payer MEDICARE, BC, MEDICAID, SELFPAY ==
[2021-11-23 14:15] LABS: Basophils % 0.2 %; Eosinophils % 0.1 %; Hematocrit 40.3 % (37.0-47.0); Hemoglobin 13.1 g/dL (11.5-15.3); Lymphocytes # 1.2 10^3/uL (0.8-4.8); Lymphocytes % 12.4 %; Mean Corpuscular HGB Conc 32.5 g/dL (30.0-36.0); Mean Corpuscular Hemoglobin 31.7 pg (28.0-34.0); Mean Corpuscular Volume 97.6 fl (81-99); Mean Platelet Volume 12.8 fL (7.4-10.4); Monocytes # 0.4 10^3/uL (0.2-0.9); Monocytes % 4.3 %; Neutrophils % 82.7 %; Nucleated Red Blood Cells % 0 %; Platelet Count 117 10^3/cmm (130-400); Red Blood Count 4.13 10^6/uL (4.1-5.3); White Blood Count 9.9 10^3/uL (4.0-10.0)
== END 2021-11-23 13:48 | disposition home or self-care (01) ==
PROVIDERS: Visit Provider Internal Medicine Medical Oncology
DX: D69.6 Thrombocytopenia, unspecified (principal)
CPT/HCPCS: 36415; 85025

== ENCOUNTER 2021-11-29 11:15 | Outpatient (CLI) | payer MEDICARE, BC, MEDICAID, SELFPAY ==
--- NOTE | 2021-12-03 10:37 | ONC FU_ITS ---
Dr. Miles Patient Follow-Up Note Patient: Eugenia Osuna Unit #: [id number]: 1945 Dicatated By: Lars Miles M.D.Date of Visit:Nov 29, 2021 Onc Med Follow-up/Prog Note Chief Complaint: Thrombocytopenia. 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 On 04/20/2021 she was admitted to the hospital after presenting to the emergency room with cough and fever. Her rapid Covid test was negative, but a subsequent PCR did come back positive for COVID-19 virus infection. In the meantime, she had been discharged on empiric oral antibiotic therapy with doxycycline. Her initial laboratory studies, from 04/19/2021, included CBC showing hemoglobin 11.8 g, white blood cell count 19,400, and platelet count 43,000. Her comprehensive metabolic profile had shown some decline in renal function with BUN 33 and creatinine 1.3 mg/dL. Her liver enzymes were normal. Her outpatient laboratory studies on 06/05/2021 included CBC showing hemoglobin 11.0 g, white blood cell count 8100, and platelet count 6000. Her serum iron studies showed low transferrin saturation 15% with ferritin 24 ng/mL. Her basic metabolic profile showed improved renal function with BUN 18 and creatinine 1.1 mg/dL. On 06/28/2021 she was admitted to the hospital again after presenting to the emergency room with confusion. At the time she was having a lot of bruising, no active bleeding. Her CBC showed hemoglobin 11.4 g, white blood cell count 6800, and platelet count 4000. Pro time and PTT were normal, and the haptoglobin was normal at 111.0 mg/L. Liver enzymes were slightly elevated. Sed rate was mildly elevated 45 mm/h. Abdominal ultrasound showed mild splenomegaly. She was treated presumptively for autoimmune thrombocytopenia with IVIG 1 g/kg daily for 2 days together with high-dose dexamethasone, 40 mg daily for 4 days. She was discharged home on prednisone 40 mg daily. At that point her platelet count increased to 38,000. Her hemoglobin, though, had dropped 8.4 g. I had seen her initially on 07/03/2021. At that point her hemoglobin was back up to 9.7 g and her platelet count had increased to 58,000. She continued prednisone 40 mg daily. During subsequent follow-up her platelet count had increased to over 100,000. As of her follow-up visit on 07/31/2021 the prednisone dosage was tapered to 20 mg daily. Her repeat CBC on 08/14/2021 showed just a slight decrease in the platelet count 87,000, and at that point the dosage was further tapered to 10 mg daily. Her other medical illnesses include hypertension, hyperlipidemia, and type 2 diabetes, and degenerative arthritis. She has Alzheimer's type dementia, which had been worsening gradually. She has a history of nephrolithiasis. She is a non-smoker. She is seen for a follow-up visit. The main problem, as reported by her , is that her dementia has continued to worsen. She has very limited activity. Her ECOG score is 2. She has good appetite. She has not had fever or night sweats. She has some allergy related sinus symptoms. She has not had sore mouth or throat, and she does not have difficulty swallowing. She does not complain of shortness of breath or cough, and she has not been having chest pain. She has no GI or complaints. She does have pain in her lower back and in her knees. She occasionally has headache. She tends to have dizziness if she gets up too fast. She has no focal neurologic symptoms. Medications: Acetaminophen 2 Caplet (of 500 mg) Capsule Oral b.i.d. PRN, B-12 1 Tablet (of 1000 mcg) Capsule Oral daily, Calcium 2 Tablet (of 600 mg) Oral daily, Cholecalciferol 1 Tablet (of 125 mcg ) Oral daily, [facility] Iron 1 Tablet (of 325 (65 fe) mg) Oral daily, Gabapentin 1 - 2 Tablet (of 100 mg) Capsule Oral at bedtime, Insulin Lispro 14 Unit(s) (of 100 Units/mL) Subcutaneous t.i.d., Lantus SoloStar 25 Unit(s) (of 100 Units/mL) Subcutaneous daily, Lisinopril-hydroCHLOROthiazide 1 Tablet (of 20-25 mg) Oral daily, Magnesium 1 Tablet (of 400 mg) Oral daily, Pantoprazole Sodium 1 Tablet (of 40 mg) Tablet, enteric coated Oral b.i.d., predniSONE 1 Tablet (of 10 mg) Oral daily, risperiDONE 1 Tablet (of 0.5 mg) Oral b.i.d., Sertraline HCl 1 Tablet (of 25 mg) Oral daily, Simvastatin 1 Tablet (of 40 mg) Oral daily, traMADol HCl 1 Tablet (of 50 mg) Oral t.i.d. PRN Allergies: Lipitor, Sulfamethoxazole-Trimethoprim, and Vioxx . Vital Signs: Performed on Nov 29, 2021 11:25 Height - 66.00 in Weight - 215.2 lbs (HIGH) BSA - 2.06 sq.m BMI - 34.73 (HIGH) Temperature - 97.2 F (LOW) Pulse - 89 /min Respiration - 16 /min BP - 119/71 mm(hg) O2 Sat - 97 % Pain - 0 Fatigue - 5 Physical Examination: Constitutional - She looks pretty good generally, Eyes - Sclerae nonicteric. Conjunctivae clear, ENMT - No lesions noted in the oral cavity, Hematologic/Lymphatic - No cervical, clavicular, or axillary adenopathy, Respiratory - Lungs sound clear with good air movement bilaterally, Cardiovascular - Heart rhythm appears regular. There is no murmur, gallop, or rub noted, Abdomen - Soft. Liver and spleen are not enlarged. There is no abdominal mass or ascites noted and there is no inguinal adenopathy, Extremities - No edema. She has a few scattered purpuric lesions on the arms. There are no petechiae noted, Neurologic - No focal neurologic deficits noted. Lab/Imaging: Test performed on Nov 23, 2021 14:05 WBC 9.9 10 3/uL RBC 4.13 10 6/uL HGB 13.1 g/dL HCT 40.3 % MCV 97.6 fl MCH 31.7 pg MCHC 32.5 g/dL RDW 14.0 % Platelet Count 117 10 3/cmm MPV 12.8 fL Neutrophils 8.20 10 3/uL Lymphocytes 1.2 10 3/uL Monocytes 0.4 10 3/uL Eosinophils 0.0 10 3/uL Basophils 0.0 10 3/uL Neutrophil % 82.7 % Lymphocyte % 12.4 % Monocyte % 4.3 % Eosinophil % 0.1 % Basophils % 0.2 % NRBC % 0 % Problem List: 1. 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 2. She has moderately severe anemia. This appears to be due to mild iron deficiency anemia at baseline with superimposed acute anemia secondary to the IVIG. 3. History of COVID-19 virus infection in April 2021. 4. Hypertension. 5. Hyperlipidemia. 6. Type 2 diabetes, currently uncontrolled due to steroid therapy. 7. Alzheimer's type dementia. 8. Degenerative arthritis/degenerative disease of the spine. 9. History of nephrolithiasis. Problems Addressed with this Encounter and Plan: 1. 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 She had shown some response to initial treatment with IVIG in combination with high-dose dexamethasone. She then continued steroid therapy with prednisone at 40 mg daily. She did have a significant response with platelet count increasing to over 100,000. Since then she has been able to taper the prednisone down to 10 mg daily. During follow-up her platelet count has remained adequate at a little over 100,000. As such, she will now decrease prednisone to 5 mg daily. Blood counts will be rechecked monthly. I will see her again in 3 months. In the meantime, her will call immediately if she has any increase in bruising or other bleeding manifestations. 2. She has underlying dementia, she has continued to worsen. As such, her overall management now will be more conservative. I did suggest to her that he discuss this further with Dr. Chavez. Signed By: Lars Miles M.D. <<Signature on File>>
== END 2021-11-29 11:16 | disposition home or self-care (01) ==
PROVIDERS: Visit Provider Internal Medicine Medical Oncology
DX: D69.6 Thrombocytopenia, unspecified (principal); D50.9 Iron deficiency anemia, unspecified; I10 Essential (primary) hypertension; E78.5 Hyperlipidemia, unspecified; E11.9 Type 2 diabetes mellitus without complications; G30.9 Alzheimer's disease, unspecified; F02.80 Dementia in other diseases classified elsewhere, unspecified severity, without behavioral disturbance, psychotic disturbance, mood disturbance, and anxiety; M47.9 Spondylosis, unspecified; Z79.52 Long term (current) use of systemic steroids; Z79.899 Other long term (current) drug therapy
CPT/HCPCS: 99214

== ENCOUNTER 2022-01-01 15:05 | Outpatient (CLI) | payer MEDICARE, BC, MEDICAID, SELFPAY ==
[2022-01-01 15:29] LABS: Basophils % 0.3 %; Hematocrit 37.2 % (37.0-47.0); Hemoglobin 12.3 g/dL (11.5-15.3); Lymphocytes % 12.9 %; Mean Corpuscular HGB Conc 33.1 g/dL (30.0-36.0); Mean Corpuscular Hemoglobin 32.5 pg (28.0-34.0); Mean Corpuscular Volume 98.4 fl (81-99); Mean Platelet Volume 12.4 fL (7.4-10.4); Monocytes # 0.5 10^3/uL (0.2-0.9); Neutrophils # 6.16 10^3/uL (1.8-7.7); Neutrophils % 80.5 %; Nucleated Red Blood Cells % 0 %; Platelet Count 115 10^3/cmm (130-400); Red Blood Count 3.78 10^6/uL (4.1-5.3); Red Cell Distribution Width 12.9 % (12.1-15.1); White Blood Count 7.7 10^3/uL (4.0-10.0)
== END 2022-01-01 15:06 | disposition home or self-care (01) ==
PROVIDERS: Visit Provider Internal Medicine Medical Oncology
DX: D69.6 Thrombocytopenia, unspecified (principal)
CPT/HCPCS: 36415; 85025

== ENCOUNTER 2022-01-29 13:15 | Oncology outpatient (recurring) (ONCR) | payer MEDICARE, BC, MEDICAID, SELFPAY ==
[2022-01-29 13:48] LABS: Basophils % 0.3 %; Hemoglobin 13.1 g/dL (11.5-15.3); Lymphocytes # 1.3 10^3/uL (0.8-4.8); Lymphocytes % 14.4 %; Mean Corpuscular Hemoglobin 32.2 pg (28.0-34.0); Mean Corpuscular Volume 100.7 fl (81-99); Mean Platelet Volume 12.1 fL (7.4-10.4); Monocytes # 0.5 10^3/uL (0.2-0.9); Monocytes % 6.1 %; Neutrophils # 6.89 10^3/uL (1.8-7.7); Neutrophils % 78.7 %; Nucleated Red Blood Cells % 0 %; Platelet Count 126 10^3/cmm (130-400); Red Blood Count 4.07 10^6/uL (4.1-5.3); Red Cell Distribution Width 12.7 % (12.1-15.1); White Blood Count 8.8 10^3/uL (4.0-10.0)
[2022-01-29 14:10] LABS: Alanine Aminotransferase 27 U/L (0-33); Albumin Level 4.1 g/dL (3.5-5.2); Alkaline Phosphatase 60 IU/L (35-105); Blood Urea Nitrogen 32 mg/dL (8-23); Calcium 9.3 mg/dL (8.5-10.5); Carbon Dioxide 26 mmol/L (22-29); Chloride 105 mmol/L (98-107); Globulin 2.2 g/dL (1.3-4.6); Glucose 146 mg/dL (65-115); Osmolality Calculated 302 mOsm/kg (285-295); Sodium 141 mmol/L (136-145); Total Bilirubin 0.3 mg/dL (0.15-1.2); Total Protein 6.3 g/dL (6.6-8.7)
[2022-01-29 14:12] LABS: Anion Gap 15.2 (5-19); Aspartate Amino Transferase 27 U/L (0-32); Potassium 5.2 mmol/L (3.5-5.1)
== END 2022-02-06 23:59 | disposition home or self-care (01) ==
PROVIDERS: Referring Provider Internal Medicine; Visit Provider Internal Medicine Medical Oncology
DX: D69.6 Thrombocytopenia, unspecified (principal)
CPT/HCPCS: 80053; 85025

== ENCOUNTER 2022-03-27 13:08 | Oncology outpatient (recurring) (ONCR) | payer MEDICARE, BC, MEDICAID, SELFPAY | END 2022-03-27 23:59 | disposition home or self-care (01) | PROVIDERS: PCP Internal Medicine; Referring Provider Internal Medicine; Visit Provider Nurse Practitioner Family | DX: D69.6 Thrombocytopenia, unspecified (principal); F03.90 Unspecified dementia, unspecified severity, without behavioral disturbance, psychotic disturbance, mood disturbance, and anxiety; Z79.52 Long term (current) use of systemic steroids | CPT/HCPCS: 99214 ==

== ENCOUNTER 2022-07-02 13:17 | Oncology outpatient (recurring) (ONCR) | payer MEDICARE, BC, MEDICAID, SELFPAY | END 2022-07-09 23:59 | disposition home or self-care (01) | LOC: ONCMED 13:18 | PROVIDERS: PCP Internal Medicine; Referring Provider Internal Medicine; Visit Provider Nurse Practitioner Family | DX: D69.6 Thrombocytopenia, unspecified (principal) | CPT/HCPCS: 99213; 99214 ==